=== PATIENT | female | born 1985 | race Caucasian/White ===

== ENCOUNTER → 2016-11-08 | Outpatient (CLI) | payer BC ==
--- NOTE | 2016-11-09 09:36 | XR ---
Bilateral knees HISTORY: Pain and swelling 2 views of both knees submitted Bone mineralization, joint spaces and alignment are maintained. There is no evident joint effusion. IMPRESSION: Normal knees.
--- NOTE | 2016-11-09 21:34 | MR ---
EXAMINATION TYPE: MR lumbar spine wo con DATE OF EXAM: 11/08/2016 9:06 PM COMPARISON: 03/01/2014 HISTORY: LUMBAGO, EMILIANO LEG PAIN CONTRAST: 0 mL intravenous MultiHance. TECHNIQUE: Multiplanar, multisequence images of the lumbar spine were acquired. FINDINGS: L5-S1: No significant disc bulge or disc herniation. No spinal canal stenosis. No foraminal stenosi s. Mild disc desiccation is present.. Tiny annular tear within no right posterior lateral region may be present and was present on the comparison. L4-L5: No significant disc bulge or disc herniation. No spinal canal stenosis. No foraminal stenosi s. . L3-L4: No significant disc bulge or disc herniation. No spinal canal stenosis. No foraminal stenosi s. . L2-L3: No significant disc bulge or disc herniation. No spinal canal stenosis. No foraminal stenosi s. . L1-L2: No significant disc bulge or disc herniation. No spinal canal stenosis. No foraminal stenosi s. . T12-L1: No significant disc bulge or disc herniation. No spinal canal stenosis. No foraminal stenos is. . No signal abnormalities within the distal spinal cord within the [id number]. Cord terminates at T1 2-L1. IMPRESSION: 1. Examination stable from February 23, 2014. 2. Minimal mild disc desiccation L5-S1. Small stable annular tear may be in the right posterior later al region.
--- NOTE | 2016-11-11 08:02 | MR ---
EXAMINATION TYPE: MR brain wo/w con DATE OF EXAM: 11/08/2016 9:07 PM COMPARISON: 02/15/2015 HISTORY: MS, Weakness, Numbness TECHNIQUE: Multiplanar, multisequence images of the brain and brainstem is performed without and with utilizing 13 mL intravenous MultiHance gadolinium contrast. Demyelinating disease protocol with additional Sag ittal Flair sequence performed. FINDINGS: T2 Lesions Present : Yes Approximate Number of Lesions: 6 each side Locations Identified : Subcortical and periventricular Size of Reference Lesion(s): 1. 0.8 x 0.4 x 0.7 cm on axial image series 501 image 23 and sagittal image series 601 image 27. 2 0.6 cm x 0.4 cm x 0.7 cm on axial image 501 image 22 and sagittal image 601 image 12 Enhancing Lesion(s) Present: No T1 Hypointense Lesion(s) Present: Matching white matter changes Change from Prior: Diminished number of lesions Diffusion weighted images demonstrate no evidence of a recent infarct or other diffusion abnormality. There is no worrisome extra-axial fluid collection. The ventricular system and cisternal spaces are normal in size and appearance. The brain volume is age appropriate. Midline structures demonstrate normal morphology. The craniocervical junction appears within normal limits. Post contrast images demonstrate no abnormal enhancement. The visualized globes are intact. There is some mucosal thickening within left ethmoid air cells. IMPRESSION: Diminished number of white matter lesions. The size of the largest lesions appear stable. Some of the se are perpendicular to the ventricles which can be suggestive for, although not diagnostic of, multi ple sclerosis.
== END | disposition home or self-care (01) ==
LOC: RADMRIMAIN 19:33
PROVIDERS: ATTEND Psychiatry & Neurology Neurology
DX: M54.5 Low back pain (principal); M25.561 Pain in right knee; M25.562 Pain in left knee; G93.9 Disorder of brain, unspecified
CPT/HCPCS: 73560; 70553; 72148; A9577

== ENCOUNTER → 2016-12-16 | Outpatient (CLI) | payer BC ==
[2016-12-16 12:38] LABS: Basophils % (A) 1 %; Eosinophils # (A) 0.1 k/uL (0-0.7); Eosinophils % (A) 2 %; HCT 44.3 % (34.0-46.0); HGB 14.4 gm/dL (11.4-16.0); Luc # (Auto) 0.11; Luc % (Auto) 2; Lymphocytes # (A) 2.6 k/uL (1.0-4.8); Lymphocytes % (A) 44 %; MCH 32.6 pg (25.0-35.0); MCHC 32.5 g/dL (31.0-37.0); MCV 100.3 fL (80.0-100.0); Mean Platelet Volume 7.5; Monocytes # (A) 0.2 k/uL (0-1.0); Monocytes % (A) 3 %; Neutrophils # (A) 2.8 k/uL (1.3-7.7); Neutrophils % (A) 49 %; RBC 4.41 m/uL (3.80-5.40); RDW 12.5 % (11.5-15.5); WBC 5.9 k/uL (3.8-10.6); WBC (Perox) 5.77
[2016-12-16 12:53] LABS: ALT 26 U/L (9-52); AST 15 U/L (14-36); Alkaline Phosphatase 50 U/L (38-126); Anion Gap 11 mmol/L; Blood Urea Nitrogen 12 mg/dL (7-17); Calcium 9.5 mg/dL (8.4-10.2); Carbon Dioxide 24 mmol/L (22-30); Chloride 107 mmol/L (98-107); Glucose 84 mg/dL (74-99); Non-African American GFR(MDRD) >60 (>60 ml/min/1.73 sqM); Potassium 4.1 mmol/L (3.5-5.1); Sodium 142 mmol/L (137-145); Total Bilirubin 0.6 mg/dL (0.2-1.3); Total Protein 7.1 g/dL (6.3-8.2)
[2016-12-16 13:42] LABS: Vitamin B12 228 pg/mL (239-931)
== END ==
LOC: LABWHC1 12:10
PROVIDERS: ATTEND Nurse Practitioner Acute Care
DX: E55.9 Vitamin D deficiency, unspecified (principal); G35 Multiple sclerosis
CPT/HCPCS: 36415; 80053; 82306; 82607; 84439; 84443; 84481; 85025

== ENCOUNTER → 2018-10-06 | Outpatient (CLI) | payer BC ==
--- NOTE | 2018-10-06 11:15 | MR ---
EXAMINATION TYPE: MR brain wo/w con DATE OF EXAM: 10/06/2018 COMPARISON: Prior MR brain 11/08/2016 HISTORY: Dizziness, bilateral weakness, MS TECHNIQUE: Multiplanar, multisequence images of the brain and brainstem is performed without and with IV contras t, utilizing 7.5 mL intravenous Gadavist . FINDINGS: Diffusion weighted images demonstrate no evidence of a recent infarct or other diffusion ab normality. There is no extra-axial fluid collection or significant interval change in white matter s ignal abnormality. The ventricular system and cisternal spaces are normal in size and appearance. T he brain volume is age appropriate. Midline structures demonstrate normal morphology. The craniocervical junction appears within normal limits. Post contrast images demonstrate no abnormal enhancement. The dural venous sinuses appear pa tent. The visualized sinuses are remarkable for inflammatory change in the ethmoid air cells, and the globes are intact. IMPRESSION: Stable exam. Findings compatible with patient's history of multiple sclerosis. Mild sinus disease.
== END | disposition home or self-care (01) ==
LOC: RADMRIMAIN 09:26
PROVIDERS: ATTEND Psychiatry & Neurology Neurology
DX: G35 Multiple sclerosis (principal); Z88.1 Allergy status to other antibiotic agents
CPT/HCPCS: 70553; A9585

== ENCOUNTER 2019-01-04 09:09 | Emergency (ER) | payer BC ==
[2019-01-04] MEDS ORDERED: ASPIRIN 81 MG PO STA (09:45)
[2019-01-04] MEDS ORDERED: KETOROLAC 30 MG/ML 1 ML VIAL IVP STA (09:45)
[2019-01-04] MEDS ORDERED: SODIUM CHLORIDE 0.9% 500 ML 500 ML IV STA (09:45)
--- NOTE | 2019-01-04 09:49 | ED ---
Chest Pain HPI - General Chief Complaint: Chest Pain Stated Complaint: chest pain Time Seen by Provider: 01/04/19 09:31 Source: patient, RN notes reviewed Mode of arrival: wheelchair Limitations: no limitations - History of Present Illness Initial Comments: 33-year-old female presents emergency Department chief complaint of left-sided chest pain. 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 Patient states that it hurts to twist and bend her stated deep breath and the side. Patient denies any trauma. Patient states that she was not lifting anything heavy or out of the usual for herself. Patient states that she does have a history of MS but denies any other past medical history including hypertension, hyperlipidemia, diabetes or prior cardiac disease. She is a former smoker she did state that her mother had [place] at 52. Patient denies any pain medications prior arrival. Patient does not take any current home medications. Patient denies cough, chest congestion, fevers or chills. Patient has no nausea vomiting. - Related Data Home Medications Medication Instructions Recorded Confirmed Dextroamphetamine/Amphetamine 20 mg PO BID 03/12/15 01/04/19 [Adderall] Topiramate [Topamax] 50 mg PO HS 06/05/15 01/04/19 ALPRAZolam [Xanax] 0.25 mg PO HS PRN 01/04/19 01/04/19 Escitalopram Oxalate [Lexapro] 20 mg PO HS 01/04/19 01/04/19 rOPINIRole HCL [Requip] 0.25 mg PO HS 01/04/19 01/04/19 Allergies Allergy/AdvReac Type Severity Reaction Status Date / Time azithromycin Allergy Rash/Hives Verified 01/04/19 09:21 [From Zithromax [place]] Review of Systems ROS Statement: Those systems with pertinent positive or pertinent negative responses have been documented in the HPI. ROS Other: All systems not noted in ROS Statement are negative. EKG Findings - EKG Comments: EKG Findings:: EKG performed at 9:30 normal sinus rhythm rate of 70 ID 128 QRS 86 QT/QTC 396/4:30 Past Medical History Past Medical History: Neurologic Disorder Additional Past Medical History / Comment(s): multiple sclerosis History of Any Multi-Drug Resistant Organisms: None Reported Past Surgical History: Tubal Ligation Additional Past Surgical History / Comment(s): mar 2014 to have tubal ligation Past Anesthesia/Blood Transfusion Reactions: No Reported Reaction Past Psychological History: No Psychological Hx Reported Smoking Status: Former smoker Past Alcohol Use History: None Reported Past Drug Use History: None Reported General Exam Limitations: no limitations General appearance: alert, in no apparent distress Head exam: Present: atraumatic, normocephalic, normal inspection Eye exam: Present: normal appearance, PERRL, EOMI. Absent: scleral icterus, conjunctival injection, periorbital swelling ENT exam: Present: normal exam, normal oropharynx, mucous membranes moist Neck exam: Present: normal inspection, full ROM. Absent: tenderness, meningismus, lymphadenopathy Respiratory exam: Present: normal lung sounds bilaterally, chest wall tenderness (Moderate anterior left-sided chest wall tenderness). Absent: respiratory distress, wheezes, rales, rhonchi, stridor Cardiovascular Exam: Present: regular rate, normal rhythm, normal heart sounds. Absent: systolic murmur, diastolic murmur, rubs, gallop, clicks Back exam: Absent: CVA tenderness (R), CVA tenderness (L) Neurological exam: Present: alert, oriented X3, CN II-XII intact Skin exam: Present: warm, dry, intact, normal color. Absent: rash Course Vital Signs 01/04/19 09:21 Temperature 98.5 F Pulse Rate 79 Respiratory 18 Rate Blood Pressure 118/79 Chest Pain MDM - [facility] 33-year-old female presented for chest wall pain. Patient's pain is reproducible at this time. Patient did have EKG, chest x-ray and lab work. Negative troponin, EKG within normal limits. Patient is improved after Toradol. They feel this is not cardiac related this is chest wall pain, chest wall strain. Patient will take [id number] anti-inflammatories and follow-up PCP we discussed return parameters. Disposition Clinical Impression: Chest wall pain, Chest wall muscle strain Disposition: HOME SELF-CARE Condition: Stable Instructions (If sedation given, give patient instructions): Chest Wall Pain (ED) Additional Instructions: Please return to the Emergency Department if symptoms worsen or any other concerns. Is patient prescribed a controlled substance at d/c from ED?: No Referrals: Nguyễn Ochoa MD [Primary Care Provider] - 1-2 days Time of Disposition: 11:38
[2019-01-04 10:19] LABS: Basophils % (A) 1 %; Eosinophils # (A) 0.1 k/uL (0-0.7); Eosinophils % (A) 1 %; HCT 35.2 % (34.0-46.0); HGB 11.9 gm/dL (11.4-16.0); Lymphocytes # (A) 1.8 k/uL (1.0-4.8); Lymphocytes % (A) 31 %; MCH 32.1 pg (25.0-35.0); MCHC 33.8 g/dL (31.0-37.0); Mean Platelet Volume 7.8; Monocytes # (A) 0.2 k/uL (0-1.0); Monocytes % (A) 3 %; Neutrophils # (A) 3.7 k/uL (1.3-7.7); Neutrophils % (A) 63 %; Platelet Count 218 k/uL (150-450); RDW 13.7 % (11.5-15.5); WBC 5.8 k/uL (3.8-10.6)
[2019-01-04 10:33] LABS: ALT 20 U/L (9-52); AST 18 U/L (14-36); African American GFR (CKD) >90 (>60 ml/min/1.73 sqM); Albumin 3.8 g/dL (3.5-5.0); Alkaline Phosphatase 41 U/L (38-126); Anion Gap 7 mmol/L; Blood Urea Nitrogen 12 mg/dL (7-17); Calcium 8.7 mg/dL (8.4-10.2); Carbon Dioxide 25 mmol/L (22-30); Chloride 107 mmol/L (98-107); Glucose 86 mg/dL (74-99); Magnesium 1.9 mg/dL (1.6-2.3); Potassium 3.9 mmol/L (3.5-5.1); Sodium 139 mmol/L (137-145); Total Bilirubin 0.6 mg/dL (0.2-1.3); Total Protein 6.1 g/dL (6.3-8.2)
--- NOTE | 2019-01-04 10:37 | XR ---
EXAMINATION TYPE: XR chest 2V DATE OF EXAM: 01/04/2019 COMPARISON: 08/23/2015 TECHNIQUE: PA and lateral views submitted. HISTORY: Chest pain FINDINGS: The lungs are clear and there is no pneumothorax, pleural effusion, or focal pneumonia. No overt fa ilure. Mild hypertrophic change of the spine. IMPRESSION: 1. No acute process.
[2019-01-04 10:46] LABS: D-Dimer 0.28 mg/L FEU (<0.60); INR 0.9 (<1.2); Partial Thromboplastin Time 24.8 sec (22.0-30.0); Prothrombin Time 9.8 sec (9.0-12.0)
[2019-01-04 11:48] VITALS: BP 111/75; PULSE 66; RESP 16; TEMP 98
== END 2019-01-04 11:48 | disposition home or self-care (01) ==
LOC: EC 09:09
DX: S29.011A Strain of muscle and tendon of front wall of thorax, initial encounter (principal); Z79.899 Other long term (current) drug therapy; Z88.1 Allergy status to other antibiotic agents; Z87.891 Personal history of nicotine dependence; X50.1XXA Overexertion from prolonged static or awkward postures, initial encounter
CPT/HCPCS: 36415; 93005; 85379; 80053; 83735; 84484; 85025; 85610; 85730; 71046; 99285; 96374; J1885

== ENCOUNTER 2019-01-30 20:05 | Emergency (ER) | payer BC ==
[2019-01-30] MEDS ORDERED: diphenhydrAMINE 50 MG/ML 1 ML VIAL IVP STA (21:17)
[2019-01-30] MEDS ORDERED: KETOROLAC 30 MG/ML 1 ML VIAL IVP STA (21:17)
[2019-01-30] MEDS ORDERED: METOCLOPRAMIDE 5 MG/ML 2 ML VIAL IVP STA (21:17)
[2019-01-30] MEDS ORDERED: SODIUM CHLORIDE 0.9% 1,000 ML IV ONE (21:17)
[2019-01-30 21:28] LABS: Basophils % (A) 1 %; Eosinophils # (A) 0.1 k/uL (0-0.7); Eosinophils % (A) 2 %; HCT 43.3 % (34.0-46.0); HGB 14.5 gm/dL (11.4-16.0); Lymphocytes # (A) 1.1 k/uL (1.0-4.8); Lymphocytes % (A) 17 %; MCH 32.2 pg (25.0-35.0); MCHC 33.4 g/dL (31.0-37.0); MCV 96.4 fL (80.0-100.0); Mean Platelet Volume 7.6; Monocytes # (A) 0.3 k/uL (0-1.0); Monocytes % (A) 5 %; Neutrophils # (A) 4.8 k/uL (1.3-7.7); Neutrophils % (A) 75 %; Platelet Count 233 k/uL (150-450); RBC 4.49 m/uL (3.80-5.40); WBC 6.4 k/uL (3.8-10.6)
[2019-01-30 21:34] LABS: HCG,Qualitative Serum Not Detected
[2019-01-30 21:38] LABS: ALT 17 U/L (9-52); AST 23 U/L (14-36); African American GFR (CKD) >90 (>60 ml/min/1.73 sqM); Albumin 4.1 g/dL (3.5-5.0); Alkaline Phosphatase 53 U/L (38-126); Anion Gap 11 mmol/L; Bilirubin,Unconjugated 0.4 mg/dL (0.0-1.1); Blood Urea Nitrogen 14 mg/dL (7-17); Calcium 8.7 mg/dL (8.4-10.2); Carbon Dioxide 22 mmol/L (22-30); Chloride 106 mmol/L (98-107); Glucose 95 mg/dL (74-99); Potassium 3.8 mmol/L (3.5-5.1); Sodium 139 mmol/L (137-145); Total Bilirubin 0.4 mg/dL (0.2-1.3); Total Protein 6.8 g/dL (6.3-8.2)
--- NOTE | 2019-01-30 22:01 | ED ---
General Adult HPI - General Chief complaint: Headache Stated complaint: Headache/vomiting Time Seen by Provider: 01/30/19 20:53 Source: patient Mode of arrival: ambulatory Limitations: no limitations - History of Present Illness Initial comments: 33-year-old female with a history of MS presenting with headache for the last 4 days. States that started in the frontal area of her head, which is wear she normally has headaches. She states she tried Topamax, Aleve, Naproxen, and Motrin without relief. Today she developed nausea with 10 episodes of nonbloody nonbillious emesis. she denies any diarrhea. She is passing gas and her last bowel movement was yesterday. She admits to a subjective fever at home but denies any neck pain. She is having nonradiating cramping superior to her umbilicus. She denies sick contacts or suspicious foods. - Related Data Home Medications Medication Instructions Recorded Confirmed Topiramate [Topamax] 50 mg PO HS 06/05/15 01/30/19 ALPRAZolam [Xanax] 0.25 mg PO HS PRN 01/04/19 01/30/19 Escitalopram Oxalate [Lexapro] 20 mg PO HS 01/04/19 01/30/19 Previous Rx's Medication Instructions Recorded Ondansetron [Zofran ODT] 4 mg PO Q8HR PRN #20 tab 01/30/19 Allergies Allergy/AdvReac Type Severity Reaction Status Date / Time azithromycin Allergy Rash/Hives Verified 01/30/19 20:46 [From Zithromax Z-[place]] Review of Systems ROS Statement: Those systems with pertinent positive or pertinent negative responses have been documented in the HPI. Review of Systems Constitutional: Positive fever, chills Eyes: Denies change in vision, Denies pain Ears, nose, mouth, throat: Denies headaches, Denies sore throat Cardiovascular: Denies chest pain. Denies palpitations Respiratory: Denies shortness of breath, Denies cough Gastrointestinal: Positive abdominal pain.Positive nausea, vomiting. Denies diarrhea. Genitourinary: Denies hematuria, Denies infections Musculoskeletal: Denies pain, Denies swelling Integumentary: Denies rash Neurological: Positive headache, focal weakness, focal numbness Psychiatric: Denies anxiety, Denies depression Hematologic/Lymphatic: Denies easy bleeding or bruising ROS Other: All systems not noted in ROS Statement are negative. Past Medical History Past Medical History: Neurologic Disorder Additional Past Medical History / Comment(s): multiple sclerosis History of Any Multi-Drug Resistant Organisms: None Reported Past Surgical History: Tubal Ligation Additional Past Surgical History / Comment(s): mar 2014 to have tubal ligation Past Anesthesia/Blood Transfusion Reactions: No Reported Reaction Past Psychological History: No Psychological Hx Reported Smoking Status: Former smoker Past Alcohol Use History: None Reported Past Drug Use History: None Reported General Exam - General Exam Comments Initial Comments: General: Awake, alert, No acute Distress HENT: Normocephalic. Atraumatic Eyes: PERRL. EOMI. No scleral icterus. No injected conjunctiva Neck: Full ROM without pain. No nuchal rigidity. Chest/Lungs: Clear to auscultation bilaterally. No wheezing, rhonchi, or rales Cardiac: Regular rate, rhythm. No murmurs or rubs Abdomen/GI: Soft, nontender, nondistended. No rebound, guarding, or rigidity. Musculoskeletal: Full ROM Skin: Warm, dry, intact Neurologic: A/Ox3, no weakness, no sensory deficit, no abnormal gait, no coordi nation deficit Limitations: no limitations Course Vital Signs 01/30/19 01/30/19 01/30/19 20:12 21:42 22:13 Temperature 99.5 F 98.7 F 98.8 F Pulse Rate 69 65 72 Respiratory 16 18 16 Rate Blood Pressure 109/72 111/64 107/65 O2 Sat by Pulse 95 98 98 Oximetry 01/30/19 23:40 Temperature 98.5 F Pulse Rate 65 Respiratory 16 Rate Blood Pressure 106/67 O2 Sat by Pulse 98 Oximetry Medical Decision Making - Medical Decision Making 33-year-old female presenting with headache, generalized body aches, nausea and vomiting. Initial exam the patient is awake, alert, no acute distress. VSS. Patient is well-appearing and nontoxic on examination. I discussed with her concern for meningitis, however at a very low suspicion that this is the cause of her symptoms as her headache is consistent with her normal migraines and she is afebrile in the department. The patient declines further evaluation of that via LP, and I agree with deferring. Her laboratory workup was negative for acute process. Her symptoms resolved while in the department. Given a perception for Zofran and instructed to take Tylenol as she could get rebound headaches from the NSAID she has been taking, and she was also informed the Zofran can cause headaches.No further emergent workup indicated. The patient was given return to ED instructions. They were instructed to follow up with their primary care provider. Stable for discharge at this time. - Lab Data Result diagrams: 01/30/19 20:48 01/30/19 20:48 Lab Results 01/30/19 01/30/19 01/30/19 Range/Units 20:48 20:48 22:05 WBC 6.4 (3.8-10.6) k/uL RBC 4.49 (3.80-5.40) m/uL Hgb 14.5 (11.4-16.0) gm/dL Hct 43.3 (34.0-46.0) % MCV 96.4 (80.0-100.0) fL MCH 32.2 (25.0-35.0) pg MCHC 33.4 (31.0-37.0) g/dL RDW 14.0 (11.5-15.5) % Plt Count 233 (150-450) k/uL Neutrophils % 75 % Lymphocytes % 17 % Monocytes % 5 % Eosinophils % 2 % Basophils % 1 % Neutrophils # 4.8 (1.3-7.7) k/uL Lymphocytes # 1.1 (1.0-4.8) k/uL Monocytes # 0.3 (0-1.0) k/uL Eosinophils # 0.1 (0-0.7) k/uL Basophils # 0.0 (0-0.2) k/uL Sodium 139 (137-145) mmol/L Potassium 3.8 (3.5-5.1) mmol/L Chloride 106 (98-107) mmol/L Carbon Dioxide 22 (22-30) mmol/L Anion Gap 11 mmol/L BUN 14 (7-17) mg/dL Creatinine 0.81 (0.52-1.04) mg/dL Est GFR (CKD-EPI)AfAm >90 (>60 ml/min/1.73 sqM) Est GFR (CKD-EPI)NonAf >90 (>60 ml/min/1.73 sqM) Glucose 95 (74-99) mg/dL Calcium 8.7 (8.4-10.2) mg/dL Total Bilirubin 0.4 (0.2-1.3) mg/dL Conjugated Bilirubin 0.0 (0.0-0.3) mg/dL Unconjugated Bilirubin 0.4 (0.0-1.1) mg/dL Delta Bilirubin 0.0 (0.0-0.2) mg/dL AST 23 (14-36) U/L ALT 17 (9-52) U/L Alkaline Phosphatase 53 (38-126) U/L Total Protein 6.8 (6.3-8.2) g/dL Albumin 4.1 (3.5-5.0) g/dL Lipase 32 (23-300) U/L HCG, Qual Not Detected Urine Color Yellow Urine Appearance Clear (Clear) Urine pH 5.5 (5.0-8.0) Ur Specific [place] 1.029 (1.001-1.035) Urine Protein Trace H (Negative) Urine Glucose (UA) Negative (Negative) Urine Ketones Negative (Negative) Urine Blood Moderate H (Negative) Urine Nitrite Negative (Negative) Urine Bilirubin Negative (Negative) Urine Urobilinogen 2.0 (<2.0) mg/dL Ur Leukocyte Esterase Trace H (Negative) Urine RBC 4 (0-5) /hpf Urine WBC 4 (0-5) /hpf Ur Squamous Epith Cells 8 H (0-4) /hpf Amorphous Sediment Rare H (None) /hpf Urine Bacteria Rare H (None) /hpf Hyaline Casts 1 (0-2) /lpf Urine Mucus Many H (None) /hpf Disposition Clinical Impression: Headache, Nausea, Abdominal pain Disposition: HOME SELF-CARE Instructions (If sedation given, give patient instructions): Acute Headache (ED), Abdominal Pain (ED) Additional Instructions: Return to ED if your abdominal pain worsens, especially in the next 8-12 hours. Zofran can cause headache. Use Tylenol if you develop headache. Prescriptions: Ondansetron [Zofran ODT] 4 mg PO Q8HR PRN #20 tab PRN Reason: Nausea Is patient prescribed a controlled substance at d/c from ED?: No Referrals: Nguyễn Ochoa MD [Primary Care Provider] - 1-2 days
[2019-01-30 22:14] VITALS: RESP 16
[2019-01-30 23:15] LABS: Amorphous Sediment,Urine Rare /hpf; Appearance,Urine Clear (Clear); Bacteria,Urine Rare /hpf; Bilirubin,Urine Negative (Negative); Blood,Urine Moderate (Negative); Color,Urine Yellow; Glucose,Urine (UA) Negative (Negative); Hyaline Casts,Urine 1 /lpf (0-2); Ketones,Urine Negative (Negative); Leukocyte Esterase,Urine Trace (Negative); Mucus,Urine Many /hpf; Nitrite,Urine Negative (Negative); PH, Urine 5.5 (5.0-8.0); Protein,Urine Trace (Negative); RBC,Urine 4 /hpf (0-5); Specific Gravity,Urine 1.029 (1.001-1.035); Squamous Epithelial Cell,Urine 8 /hpf (0-4)
[2019-01-30 23:41] VITALS: BP 106/67; PULSE 65; TEMP 98.5
== END 2019-01-30 23:41 | disposition home or self-care (01) ==
LOC: EC 20:05
DX: R51 Headache (principal); R10.9 Unspecified abdominal pain; R52 Pain, unspecified; R11.2 Nausea with vomiting, unspecified; R50.9 Fever, unspecified; G35 Multiple sclerosis; Z79.899 Other long term (current) drug therapy; Z88.1 Allergy status to other antibiotic agents; Z87.891 Personal history of nicotine dependence; Z53.20 Procedure and treatment not carried out because of patient's decision for unspecified reasons
CPT/HCPCS: 99283; 96374; 96375 ×2; 96361; 36415; 80048; 80076; 83690; 85025; 81001; 84703; J1200; J2765; J1885

== ENCOUNTER 2020-01-09 14:57 | Emergency (ER) | payer BC ==
[2020-01-09 15:02] VITALS: RESP 18
[2020-01-09] MEDS ORDERED: SODIUM CHLORIDE 0.9% 1,000 ML IV STA (15:48)
--- NOTE | 2020-01-09 16:12 | ED ---
General Adult HPI - General Chief complaint: Abdominal Pain Stated complaint: Abdominal Pain Source: patient, RN notes reviewed Mode of arrival: ambulatory Limitations: no limitations - History of Present Illness Initial comments: 34-year-old female presents to the emergency department for a chief complaint of vaginal bleeding. Patient states 2-3 days ago she started to have vaginal bleeding and has been passing clots. Patient states she has a history of tubal ligation. States she gets her period 3 times a month but that it is usually nothing like this. States she has abdominal cramping as well. Patient denies any lightheadedness. Patient has no other complaints at this time including shortness of breath, chest pain, nausea or vomiting, headache, or visual changes. - Related Data Home Medications Medication Instructions Recorded Confirmed Topiramate [Topamax] 50 mg PO HS 06/05/15 01/30/19 ALPRAZolam [Xanax] 0.25 mg PO HS PRN 01/04/19 01/30/19 Escitalopram Oxalate [Lexapro] 20 mg PO HS 01/04/19 01/30/19 Previous Rx's Medication Instructions Recorded Ondansetron [Zofran ODT] 4 mg PO Q8HR PRN #20 tab 01/30/19 Allergies Allergy/AdvReac Type Severity Reaction Status Date / Time azithromycin Allergy Rash/Hives Verified 01/09/20 15:02 [From Zithromax [facility]] Review of Systems ROS Statement: Those systems with pertinent positive or pertinent negative responses have been documented in the HPI. ROS Other: All systems not noted in ROS Statement are negative. Past Medical History Past Medical History: Neurologic Disorder Additional Past Medical History / Comment(s): multiple sclerosis History of Any Multi-Drug Resistant Organisms: None Reported Past Surgical History: Tubal Ligation Additional Past Surgical History / Comment(s): mar 2014 to have tubal ligation Past Anesthesia/Blood Transfusion Reactions: No Reported Reaction Past Psychological History: No Psychological Hx Reported Smoking Status: Former smoker Past Alcohol Use History: None Reported Past Drug Use History: None Reported General Exam Limitations: no limitations General appearance: alert, in no apparent distress Head exam: Present: atraumatic, normocephalic, normal inspection Eye exam: Present: normal appearance, PERRL, EOMI. Absent: scleral icterus, conjunctival injection, periorbital swelling ENT exam: Present: normal exam, mucous membranes moist Neck exam: Present: normal inspection, full ROM. Absent: tenderness, meningismus, lymphadenopathy Respiratory exam: Present: normal lung sounds bilaterally. Absent: respiratory distress, wheezes, rales, rhonchi, stridor Cardiovascular Exam: Present: regular rate, normal rhythm, normal heart sounds. Absent: systolic murmur, diastolic murmur, rubs, gallop, clicks GI/Abdominal exam: Present: soft, normal bowel sounds. Absent: distended, tenderness, guarding, rebound, rigid Neurological exam: Present: alert Psychiatric exam: Present: normal affect, normal mood Course Vital Signs 01/09/20 15:00 Temperature 98.3 F Pulse Rate 73 Respiratory 18 Rate Blood Pressure 117/81 O2 Sat by Pulse 99 Oximetry Medical Decision Making - Medical Decision Making Vitals are stable. Heart rate is normal, patient is not tachycardic. Blood pressure normotensive. CBC is unremarkable. Hemoglobin stable at 13. CMP is unremarkable. Urinalysis is negative. HCG negative. Ultrasound shows a complex endometrial density that could be a blood clot. There is a 2 cm cyst on the left ovary without solid adnexal mass. No evidence of torsion. At this time I recommend that patient follows up with [facility] and take Motrin at home. She will return here for any worsening symptoms. - Lab Data Result diagrams: 01/09/20 16:04 01/09/20 16:04 Lab Results 01/09/20 01/09/20 01/09/20 Range/Units 16:00 16:00 16:04 WBC 7.4 (3.8-10.6) k/uL RBC 4.08 (3.80-5.40) m/uL Hgb 13.2 (11.4-16.0) gm/dL Hct 39.1 (34.0-46.0) % MCV 95.8 (80.0-100.0) fL MCH 32.2 (25.0-35.0) pg MCHC 33.7 (31.0-37.0) g/dL RDW 12.3 (11.5-15.5) % Plt Count 256 (150-450) k/uL Neutrophils % 58 % Lymphocytes % 35 % Monocytes % 4 % Eosinophils % 1 % Basophils % 1 % Neutrophils # 4.3 (1.3-7.7) k/uL Lymphocytes # 2.6 (1.0-4.8) k/uL Monocytes # 0.3 (0-1.0) k/uL Eosinophils # 0.1 (0-0.7) k/uL Basophils # 0.1 (0-0.2) k/uL PT (9.0-12.0) sec INR (<1.2) APTT (22.0-30.0) sec Sodium (137-145) mmol/L Potassium (3.5-5.1) mmol/L Chloride (98-107) mmol/L Carbon Dioxide (22-30) mmol/L Anion Gap mmol/L BUN (7-17) mg/dL Creatinine (0.52-1.04) mg/dL Est GFR (CKD-EPI)AfAm (>60 ml/min/1.73 sqM) Est GFR (CKD-EPI)NonAf (>60 ml/min/1.73 sqM) Glucose (74-99) mg/dL Calcium (8.4-10.2) mg/dL Total Bilirubin (0.2-1.3) mg/dL AST (14-36) U/L ALT (4-34) U/L Alkaline Phosphatase (38-126) U/L Total Protein (6.3-8.2) g/dL Albumin (3.5-5.0) g/dL Amylase (30-110) U/L Lipase (23-300) U/L Urine Color Urine Appearance (Clear) Urine pH (5.0-8.0) Ur Specific Mobile (1.001-1.035) Urine Protein (Negative) Urine Glucose (UA) (Negative) Urine Ketones (Negative) Urine Blood (Negative) Urine Nitrite (Negative) Urine Bilirubin (Negative) Urine Urobilinogen (<2.0) mg/dL Ur Leukocyte Esterase (Negative) Urine RBC (0-5) /hpf Urine WBC (0-5) /hpf Urine Mucus (None) /hpf Urine HCG, Qual Not Detected (Not Detectd) Blood Type O Positive Blood Type Recheck O Pos Bld Type Recheck Status No Antibody Screen NEGATIVE Spec Expiration Date 01/12/2020 - 229901/09/20 01/09/20 01/09/20 Range/Units 16:04 16:04 16:11 WBC (3.8-10.6) k/uL RBC (3.80-5.40) m/uL Hgb (11.4-16.0) gm/dL Hct (34.0-46.0) % MCV (80.0-100.0) fL MCH (25.0-35.0) pg MCHC (31.0-37.0) g/dL RDW (11.5-15.5) % Plt Count (150-450) k/uL Neutrophils % % Lymphocytes % % Monocytes % % Eosinophils % % Basophils % % Neutrophils # (1.3-7.7) k/uL Lymphocytes # (1.0-4.8) k/uL Monocytes # (0-1.0) k/uL Eosinophils # (0-0.7) k/uL Basophils # (0-0.2) k/uL PT 10.1 (9.0-12.0) sec INR 1.0 (<1.2) APTT 24.0 (22.0-30.0) sec Sodium 137 (137-145) mmol/L Potassium 3.9 (3.5-5.1) mmol/L Chloride 105 (98-107) mmol/L Carbon Dioxide 24 (22-30) mmol/L Anion Gap 8 mmol/L BUN 14 (7-17) mg/dL Creatinine 0.85 (0.52-1.04) mg/dL Est GFR (CKD-EPI)AfAm >90 (>60 ml/min/1.73 sqM) Est GFR (CKD-EPI)NonAf 89 (>60 ml/min/1.73 sqM) Glucose 87 (74-99) mg/dL Calcium 9.6 (8.4-10.2) mg/dL Total Bilirubin 0.7 (0.2-1.3) mg/dL AST 19 (14-36) U/L ALT 10 (4-34) U/L Alkaline Phosphatase 54 (38-126) U/L Total Protein 6.5 (6.3-8.2) g/dL Albumin 4.0 (3.5-5.0) g/dL Amylase <30 L (30-110) U/L Lipase 38 (23-300) U/L Urine Color Yellow Urine Appearance Clear (Clear) Urine pH 6.5 (5.0-8.0) Ur Specific Mobile 1.020 (1.001-1.035) Urine Protein Negative (Negative) Urine Glucose (UA) Negative (Negative) Urine Ketones Negative (Negative) Urine Blood Moderate H (Negative) Urine Nitrite Negative (Negative) Urine Bilirubin Negative (Negative) Urine Urobilinogen 2.0 (<2.0) mg/dL Ur Leukocyte Esterase Negative (Negative) Urine RBC 3 (0-5) /hpf Urine WBC <1 (0-5) /hpf Urine Mucus Rare H (None) /hpf Urine HCG, Qual (Not Detectd) Blood Type Blood Type Recheck Bld Type Recheck Status Antibody Screen Spec Expiration Date Disposition Clinical Impression: Dysfunctional uterine bleeding Disposition: HOME SELF-CARE Condition: Good Instructions (If sedation given, give patient instructions): Dysfunctional Uterine Bleeding (ED) Additional Instructions: Please follow up with OB. Please call tomorrow morning for an appointment. Return to the emergency room for any worsening symptoms such as lightheadedness or increased bleeding. Is patient prescribed a controlled substance at d/c from ED?: No Referrals: Nguyễn Ochoa MD [Primary Care Provider] - 1-2 days Time of Disposition: 17:46
[2020-01-09 16:23] LABS: Basophils # (A) 0.1 k/uL (0-0.2); Basophils % (A) 1 %; Eosinophils # (A) 0.1 k/uL (0-0.7); Eosinophils % (A) 1 %; HCT 39.1 % (34.0-46.0); HGB 13.2 gm/dL (11.4-16.0); Lymphocytes # (A) 2.6 k/uL (1.0-4.8); Lymphocytes % (A) 35 %; MCH 32.2 pg (25.0-35.0); MCHC 33.7 g/dL (31.0-37.0); MCV 95.8 fL (80.0-100.0); Mean Platelet Volume 7.8; Monocytes # (A) 0.3 k/uL (0-1.0); Monocytes % (A) 4 %; Neutrophils # (A) 4.3 k/uL (1.3-7.7); Neutrophils % (A) 58 %; Platelet Count 256 k/uL (150-450); RBC 4.08 m/uL (3.80-5.40); RDW 12.3 % (11.5-15.5); WBC 7.4 k/uL (3.8-10.6)
[2020-01-09 16:31] LABS: Prothrombin Time 10.1 sec (9.0-12.0)
[2020-01-09 16:33] LABS: ALT 10 U/L (4-34); AST 19 U/L (14-36); African American GFR (CKD) >90 (>60 ml/min/1.73 sqM); Alkaline Phosphatase 54 U/L (38-126); Amylase <30 U/L (30-110); Anion Gap 8 mmol/L; Blood Urea Nitrogen 14 mg/dL (7-17); Calcium 9.6 mg/dL (8.4-10.2); Carbon Dioxide 24 mmol/L (22-30); Chloride 105 mmol/L (98-107); Glucose 87 mg/dL (74-99); Non-African American GFR(CKD) 89 (>60 ml/min/1.73 sqM); Potassium 3.9 mmol/L (3.5-5.1); Sodium 137 mmol/L (137-145); Total Bilirubin 0.7 mg/dL (0.2-1.3); Total Protein 6.5 g/dL (6.3-8.2)
[2020-01-09 16:39] LABS: Appearance,Urine Clear (Clear); Bilirubin,Urine Negative (Negative); Blood,Urine Moderate (Negative); Color,Urine Yellow; Glucose,Urine (UA) Negative (Negative); Ketones,Urine Negative (Negative); Leukocyte Esterase,Urine Negative (Negative); Mucus,Urine Rare /hpf; Nitrite,Urine Negative (Negative); PH, Urine 6.5 (5.0-8.0); Protein,Urine Negative (Negative); RBC,Urine 3 /hpf (0-5); WBC,Urine <1 /hpf (0-5)
[2020-01-09] MEDS ORDERED: MORPHINE SULFATE 4 MG/ML SYRINGE IVP STA (17:09)
--- NOTE | 2020-01-09 17:18 | US ---
EXAMINATION TYPE: US transvaginal DATE OF EXAM: 01/09/2020 COMPARISON: 2013 CLINICAL HISTORY: pain. Pelvic pain and heavy bleeding x 2 days, irregular cycles, 1, para 1, history of tubal ligation. TECHNIQUE: Transvaginal ER exam. Date of LMP: 1-2 weeks ago EXAM MEASUREMENTS: Uterus: 8.7 x 4.4 x 4.3 cm Endometrial Stripe: 0.8 cm Right Ovary: 3.1 x 1.8 x 2.1 cm Left Ovary: 3.7 x 2.8 x 3.8 cm 1. Uterus: anteverted, mildly heterogeneous 2. Endometrium: 1.2 x 1.3cm complex non vascular area seen possibly within endometrium vs. adjacent to endometrium 3. Right Ovary: wnl 4. Left Ovary: 2.2 x 1.5 x 2.5cm cyst Spectral, color and waveform doppler imaging shows good arterial and venous flow within the ovaries ; there is no evidence for ovarian torsion. 5. Bilateral Adnexa: wnl 6. Posterior cul-de-sac: wnl IMPRESSION: There is complex endometrial density that could be blood clot. There is a 2 cm cyst on th e left ovary. No solid adnexal mass. No evidence of ovarian torsion.
[2020-01-09] MEDS ORDERED: ONDANSETRON 4 MG/2 ML VIAL IVP STA (18:02)
[2020-01-09 18:06] VITALS: BP 131/84; PULSE 67; TEMP 97.9
== END 2020-01-09 18:12 | disposition home or self-care (01) ==
LOC: EC 14:57
DX: N93.8 Other specified abnormal uterine and vaginal bleeding (principal); G35 Multiple sclerosis; Z87.891 Personal history of nicotine dependence; Z88.1 Allergy status to other antibiotic agents; Z98.51 Tubal ligation status
CPT/HCPCS: 36415; 86900; 86901; 80053; 82150; 83690; 85025; 85610; 85730; 86850; 81001; 81025; 93975; 76830; 99284; 96374; 96375; 96361 ×2; J2270; J2405

== ENCOUNTER → 2020-02-25 | Outpatient (CLI) | payer BC ==
[2020-02-25 11:19] LABS: Basophils # (A) 0.1 k/uL (0-0.2); Basophils % (A) 1 %; Eosinophils # (A) 0.1 k/uL (0-0.7); Eosinophils % (A) 1 %; HCT 41.5 % (34.0-46.0); HGB 13.4 gm/dL (11.4-16.0); Lymphocytes # (A) 2.1 k/uL (1.0-4.8); Lymphocytes % (A) 36 %; MCH 30.9 pg (25.0-35.0); MCHC 32.3 g/dL (31.0-37.0); MCV 95.8 fL (80.0-100.0); Mean Platelet Volume 7.8; Monocytes # (A) 0.3 k/uL (0-1.0); Monocytes % (A) 5 %; Neutrophils % (A) 54 %; Platelet Count 262 k/uL (150-450); RBC 4.33 m/uL (3.80-5.40); RDW 12.6 % (11.5-15.5); WBC 5.6 k/uL (3.8-10.6)
== END | disposition home or self-care (01) ==
LOC: LABPAT 09:45
PROVIDERS: ATTEND Obstetrics & Gynecology
DX: Z01.818 Encounter for other preprocedural examination (principal); N93.8 Other specified abnormal uterine and vaginal bleeding
CPT/HCPCS: 36415; 85025

== ENCOUNTER 2020-02-29 06:16 | Day surgery (SDC) | payer BC ==
[2020-02-22 12:01] VITALS: BMI 27.4
[~2020-02-29 06:16] MED LIST: DEXAMETHASONE SOD PHOSPHATE 10 MG/ML 1 ML VIAL IV ONE; LACTATED RINGERS 1,000 ML IV SCH; LIDOCAINE 1% (10MG/ML) FOR IV START INTRADERMA PRN; MIDAZOLAM 2 MG/2 ML VIAL IV PRN; ONDANSETRON 4 MG/2 ML VIAL IVP ONE; Pre Op ABX Message 1 EACH MISC MISCELLANE ONE; fentaNYL (PF) 50 MCG/ML 2 ML AMP IV PRN
[2020-02-29] MEDS ORDERED: ONDANSETRON 4 MG/2 ML VIAL ONE (06:41)
[2020-02-29 06:58] VITALS: RESP 16
[2020-02-29] MEDS ORDERED: LIDOCAINE 1% INJ 10MG/ML (20 ML MDV) ONE (07:29)
[2020-02-29] MEDS ORDERED: MIDAZOLAM 2 MG/2 ML VIAL ONE (07:29)
[2020-02-29] MEDS ORDERED: KETOROLAC 30 MG/ML 1 ML VIAL ONE (07:29)
[2020-02-29] MEDS ORDERED: fentaNYL (PF) 50 MCG/ML 2 ML AMP ONE (07:29)
[2020-02-29] MEDS ORDERED: PROPOFOL 10 MG/ML 20 ML VIAL IV ONE (07:29)
[2020-02-29] MEDS ORDERED: LIDOCAINE 1%-EPI 1:100,000 20 ML VIAL SQ ONE ×3 (07:30→07:57)
--- NOTE | 2020-02-29 08:10 | P.OP ---
Date of Procedure: 02/29/20 Preoperative Diagnosis: Dysfunctional uterine bleeding Postoperative Diagnosis: Same Procedure(s) Performed: Diagnostic hysteroscopy and NovaSure endometrial ablation Anesthesia: MAC Surgeon: Marii Kam Estimated Blood Loss (ml): 5 IV fluids (ml): 600 Urine output (ml): 30 Pathology: none sent Condition: stable Disposition: PACU Operative Findings: No gross intracavitary lesions noted on hysteroscopy Description of Procedure: After the patient was met in the preoperative holding area and all questions were answered, she was taken to the operating room where anesthetic was administered without incident. Appropriate timeout procedure was undertaken. She was in positioned, prepped and draped in the dorsal lithotomy position. The bladder was drained for proxy 30 mL of clear urine. Bimanual examination was performed. Speculum was placed in the vagina and the cervix was grasped anteriorly with a single-tooth tenaculum. Paracervical block was placed. Uterus was sounded to 8 cm. The cervix was then sequentially dilated with Hegar dilators to allow for passage of the diagnostic hysteroscope. The hysteroscope was introduced and fluffy endometrium was noted. The hysteroscope was removed and the cervix further dilated to allow for passage of the NovaSure ablation device. The device was inserted with a cavity length of 5.0 cm and a width of 3.2 cm. Cavity assessment was passed and the device was enabled. Treatment cycle was 45 seconds. Following cessation of the treatment cycle device was removed. The hysteroscope was reintroduced and complete desiccation of the endometrium was noted. Hysteroscope was removed. Tenaculum was removed from the cervix and cervix was observed. No active bleeding was noted. Instruments were then removed from the vagina. Patient was awoken from anesthetic without incident and transported recovery area in good condition. All counts reported to me as correct.
[2020-02-29 08:13] VITALS: TEMP 97.5
[2020-02-29] MEDS: HYDROmorphone 0.5 MG/0.5 ML SYRINGE IVP PRN ×4 (08:17→08:40)
[2020-02-29] MEDS ORDERED: LACTATED RINGERS 1,000 ML IV ONE (08:20)
[2020-02-29] MEDS ORDERED: diphenhydrAMINE 50 MG/ML 1 ML VIAL IVP ONE ×2 (09:03→09:19)
[2020-02-29] MEDS ORDERED: diphenhydrAMINE 50 MG/ML 1 ML VIAL ONE (09:16)
[2020-02-29 09:27] VITALS: BP 122/80; PULSE 73
== END 2020-02-29 09:55 | disposition home or self-care (01) ==
LOC: OR 06:16
PROVIDERS: ATTEND Obstetrics & Gynecology
DX: N93.8 Other specified abnormal uterine and vaginal bleeding (principal); F41.9 Anxiety disorder, unspecified; F32.9 Major depressive disorder, single episode, unspecified; G35 Multiple sclerosis; R59.1 Generalized enlarged lymph nodes; Z98.51 Tubal ligation status; Z98.890 Other specified postprocedural states; Z88.1 Allergy status to other antibiotic agents; Z83.3 Family history of diabetes mellitus; Z82.49 Family history of ischemic heart disease and other diseases of the circulatory system; Z87.891 Personal history of nicotine dependence; Z91.048 Other nonmedicinal substance allergy status; Z79.899 Other long term (current) drug therapy
CPT/HCPCS: 81025; 58563; J2250; J1200; J1100; J2405; J2001; J3010; J1885; J2704; J1170

== ENCOUNTER 2021-11-24 02:13 | Emergency (ER) | payer BC ==
[2021-11-24 02:20] VITALS: RESP 20; TEMP 98.2
[2021-11-24] MEDS ORDERED: PROPARACAINE 0.5% OPHTH DROPS 15 ML BTL BOTH EYES STA (02:28)
[2021-11-24] MEDS ORDERED: LACTATED RINGERS 1,000 ML IV SCH (02:30)
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
[2021-11-24 03:41] VITALS: BP 135/75; PULSE 78
== END 2021-11-24 03:41 | disposition home or self-care (01) ==
LOC: EC 02:13
DX: H10.213 Acute toxic conjunctivitis, bilateral (principal); Z87.891 Personal history of nicotine dependence
CPT/HCPCS: 99283

== ENCOUNTER 2022-02-03 22:32 | Emergency (ER) | payer BC ==
[2022-02-03 22:37] VITALS: BP 139/88; PULSE 90; RESP 18; TEMP 97.9
[2022-02-03] MEDS ORDERED: SODIUM CHLORIDE 0.9% 1,000 ML IV STA (23:02)
--- NOTE | 2022-02-03 23:10 | ED ---
General Adult HPI - General Chief complaint: Syncope Stated complaint: Syncope Time Seen by Provider: 02/03/22 22:38 Source: patient, family, RN notes reviewed Mode of arrival: wheelchair Limitations: no limitations - History of Present Illness Initial comments: 36-year-old female presents to the emergency department for evaluation status post syncopal episode this evening. Patient's spouse states she was in bed asleep when she woke up startled and unfocused, then appeared to "pass out." Spouse states they called EMS and patient was checked out, though declined transport to the hospital. Family brought patient via private vehicle, then patient experienced another syncopal episode while walking to the entrance. Patient states she is feeling fine and has no complaints. She is unable to recall any of these episodes. When asked about her today, patient states she did visit a sick relative which was stressful and emotional. States she then [place] [id number] [place] and was out in the heat throughout the afternoon. States she did become dizzy and has to rest in the shade for the remainder of her time outdoors. Patient states she had little to no water to drink today. Does endorse minimal alcohol use. Denies fever, chills, headache, dizziness, blurry vision, chest pain, back pain, shortness of breath, palpitations, abdominal pain, nausea, vomiting, diarrhea, or dysuria. - Related Data Home Medications Medication Instructions Recorded Confirmed Escitalopram Oxalate [Lexapro] 20 mg PO HS 01/04/19 02/29/20 Dextroamphetamine/Amphetamine 20 mg PO BID 02/22/20 02/29/20 [Adderall] Allergies Allergy/AdvReac Type Severity Reaction Status Date / Time azithromycin Allergy Rash/Hives Verified 02/03/22 22:37 [From Zithromax Z-[place]] Review of Systems ROS Statement: Those systems with pertinent positive or pertinent negative responses have been documented in the HPI. ROS Other: All systems not noted in ROS Statement are negative. Past Medical History Past Medical History: Neurologic Disorder Additional Past Medical History / Comment(s): Multiple Sclerosis. History of Any Multi-Drug Resistant Organisms: None Reported Past Surgical History: Tubal Ligation Additional Past Surgical History / Comment(s): mar 2014 to have tubal ligation Past Anesthesia/Blood Transfusion Reactions: No Reported Reaction Past Psychological History: No Psychological Hx Reported Smoking Status: Former smoker Past Alcohol Use History: Occasional Past Drug Use History: None Reported - Past Family History Mother Family Medical History: Cancer Additional Family Medical History / Comment(s): Breast Cancer. General Exam Limitations: no limitations (Well-developed, well-nourished female in no acute distress. Initial temperature 97.9, pulse 90, respirations 18, blood pressure 139/88, pulse ox 100% on room air.) General appearance: alert, in no apparent distress Head exam: Present: atraumatic, normocephalic, normal inspection Eye exam: Present: normal appearance, PERRL, EOMI. Absent: scleral icterus, conjunctival injection, periorbital swelling Pupils: Present: normal accommodation ENT exam: Present: normal exam, normal oropharynx, mucous membranes moist, TM's normal bilaterally Neck exam: Present: normal inspection, full ROM. Absent: tenderness, lymphad enopathy Respiratory exam: Present: normal lung sounds bilaterally. Absent: respiratory distress, wheezes, rales, rhonchi, stridor, chest wall tenderness Cardiovascular Exam: Present: regular rate, normal rhythm, normal heart sounds. Absent: systolic murmur, diastolic murmur, rubs, gallop, clicks GI/Abdominal exam: Present: soft, normal bowel sounds. Absent: distended, tenderness, guarding, rebound, rigid Back exam: Present: normal inspection. Absent: CVA tenderness (R), CVA tenderness (L), paraspinal tenderness, vertebral tenderness Neurological exam: Present: alert, oriented X3, CN II-XII intact, normal gait Expanded Patient oriented to: Present: person, place, time Speech: Present: fluid speech Cranial nerves: EOM's Intact: Normal, Nystagmus: Normal Motor strength exam: RUE: 5, LUE: 5, RLE: 5, LLE: 5 Eye Response: (4) open spontaneously Motor Response: (6) obeys commands Verbal Response: (5) oriented [place] Total: 15 Psychiatric exam: Present: normal affect, normal mood Skin exam: Present: warm, dry, intact, normal color. Absent: rash Course Vital Signs 02/03/22 22:32 Temperature 97.9 F Pulse Rate 90 Respiratory 18 Rate Blood Pressure 139/88 O2 Sat by Pulse 100 Oximetry - Reevaluation(s) Reevaluation #1: 02/04/22 00:00 Upon reassessment, patient continues to rest comfortably. She verbalizes readiness for discharge after it was explained that an MRI of the brain was not able to be obtained in the emergency department. She had an appointment scheduled with her neurologist for March 09. Encouraged to call to see if she could get in sooner. Patient verbalizes understanding and agrees with this plan. Medical Decision Making - Medical Decision Making This is a 36-year-old female with a past medical history of multiple sclerosis who presents to the urgency department for evaluation status post syncopal episode. Upon exam, patient is well-appearing and in no acute distress. States she is feeling fine with no dizziness or other symptoms. Her physical exam findings are unremarkable. She is neurologically intact with no focal deficit. She was given IV fluids. Laboratory studies were obtained with no significant findings. We did discuss CT of the brain, however patient states she had one done at [facility] 2 weeks ago after a similar episode. States her workup was negative and she was instructed to follow up with her neurologist for recheck. Reports her appointment is scheduled for the first week of March. Attending: Yudy. - Lab Data Result diagrams: 02/03/22 23:23 02/03/22 23:23 Lab Results 02/03/22 02/03/22 02/03/22 Range/Units 23:23 23:23 23:23 WBC 11.3 H (3.8-10.6) k/uL RBC 4.07 (3.80-5.40) m/uL Hgb 13.1 (11.4-16.0) gm/dL Hct 39.8 (34.0-46.0) % MCV 97.9 (80.0-100.0) fL MCH 32.3 (25.0-35.0) pg MCHC 33.0 (31.0-37.0) g/dL RDW 13.0 (11.5-15.5) % Plt Count 235 (150-450) k/uL MPV 7.9 Neutrophils % 59 % Lymphocytes % 34 % Monocytes % 3 % Eosinophils % 2 % Basophils % 1 % Neutrophils # 6.7 (1.3-7.7) k/uL Lymphocytes # 3.8 (1.0-4.8) k/uL Monocytes # 0.4 (0-1.0) k/uL Eosinophils # 0.2 (0-0.7) k/uL Basophils # 0.1 (0-0.2) k/uL PT 9.6 (9.0-12.0) sec INR 0.9 (<1.2) APTT 23.0 (22.0-30.0) sec D-Dimer 0.23 (<0.60) mg/L FEU Sodium (137-145) mmol/L Potassium (3.5-5.1) mmol/L Chloride (98-107) mmol/L Carbon Dioxide (22-30) mmol/L Anion Gap mmol/L BUN (7-17) mg/dL Creatinine (0.52-1.04) mg/dL Est GFR (CKD-EPI)AfAm (>60 ml/min/1.73 sqM) Est GFR (CKD-EPI)NonAf (>60 ml/min/1.73 sqM) Glucose (74-99) mg/dL Calcium (8.4-10.2) mg/dL Magnesium (1.6-2.3) mg/dL Total Bilirubin (0.2-1.3) mg/dL AST (14-36) U/L ALT (4-34) U/L Alkaline Phosphatase (38-126) U/L Troponin I (0.000-0.034) ng/mL Total Protein (6.3-8.2) g/dL Albumin (3.5-5.0) g/dL Urine Color Colorless Urine Appearance Clear (Clear) Urine pH 5.5 (5.0-8.0) Ur Specific [place] 1.005 (1.001-1.035) Urine Protein Negative (Negative) Urine Glucose (UA) Negative (Negative) Urine Ketones Negative (Negative) Urine Blood Negative (Negative) Urine Nitrite Negative (Negative) Urine Bilirubin Negative (Negative) Urine Urobilinogen <2.0 (<2.0) mg/dL Ur Leukocyte Esterase Negative (Negative) 02/03/22 02/03/22 Range/Units 23:23 23:23 WBC (3.8-10.6) k/uL RBC (3.80-5.40) m/uL Hgb (11.4-16.0) gm/dL Hct (34.0-46.0) % MCV (80.0-100.0) fL MCH (25.0-35.0) pg MCHC (31.0-37.0) g/dL RDW (11.5-15.5) % Plt Count (150-450) k/uL MPV Neutrophils % % Lymphocytes % % Monocytes % % Eosinophils % % Basophils % % Neutrophils # (1.3-7.7) k/uL Lymphocytes # (1.0-4.8) k/uL Monocytes # (0-1.0) k/uL Eosinophils # (0-0.7) k/uL Basophils # (0-0.2) k/uL PT (9.0-12.0) sec INR (<1.2) APTT (22.0-30.0) sec D-Dimer (<0.60) mg/L FEU Sodium 140 (137-145) mmol/L Potassium 3.8 (3.5-5.1) mmol/L Chloride 107 (98-107) mmol/L Carbon Dioxide 23 (22-30) mmol/L Anion Gap 10 mmol/L BUN 13 (7-17) mg/dL Creatinine 0.89 (0.52-1.04) mg/dL Est GFR (CKD-EPI)AfAm >90 (>60 ml/min/1.73 sqM) Est GFR (CKD-EPI)NonAf 83 (>60 ml/min/1.73 sqM) Glucose 101 H (74-99) mg/dL Calcium 8.6 (8.4-10.2) mg/dL Magnesium 1.9 (1.6-2.3) mg/dL Total Bilirubin <0.1 L (0.2-1.3) mg/dL AST 22 (14-36) U/L ALT 15 (4-34) U/L Alkaline Phosphatase 70 (38-126) U/L Troponin I <0.012 (0.000-0.034) ng/mL Total Protein 5.9 L (6.3-8.2) g/dL Albumin 3.6 (3.5-5.0) g/dL Urine Color Urine Appearance (Clear) Urine pH (5.0-8.0) Ur Specific [place] (1.001-1.035) Urine Protein (Negative) Urine Glucose (UA) (Negative) Urine Ketones (Negative) Urine Blood (Negative) Urine Nitrite (Negative) Urine Bilirubin (Negative) Urine Urobilinogen (<2.0) mg/dL Ur Leukocyte Esterase (Negative) - EKG Data EKG shows normal: sinus rhythm Rate: normal EKG Comments: EKG obtained at 2318 shows sinus rhythm with ventricular rate 82, WI interval 132, QRS duration 88, QT/QTC 373/412. Interpretation normal ECG. - Radiology Data Radiology results: report reviewed, image reviewed Two-view chest x-ray was obtained. Report was reviewed in its entirety. Impression per Dr. Nuñez is normal chest. No change. Disposition Clinical Impression: Syncope Disposition: HOME SELF-CARE Condition: Stable Instructions (If sedation given, give patient instructions): Syncope (ED) Additional Instructions: Increase intake of fluids. May position changes slowly. Avoid alcohol intake. Follow-up with your neurologist as scheduled. Return to the emergency department with any new, worsening, or concerning symptoms. Is patient prescribed a controlled substance at d/c from ED?: No Referrals: Nguyễn Ochoa MD [Primary Care Provider] - 1-2 days
[2022-02-03 23:34] LABS: Basophils # (A) 0.1 k/uL (0-0.2); Basophils % (A) 1 %; Eosinophils # (A) 0.2 k/uL (0-0.7); Eosinophils % (A) 2 %; HCT 39.8 % (34.0-46.0); HGB 13.1 gm/dL (11.4-16.0); Lymphocytes # (A) 3.8 k/uL (1.0-4.8); Lymphocytes % (A) 34 %; MCH 32.3 pg (25.0-35.0); MCV 97.9 fL (80.0-100.0); Mean Platelet Volume 7.9; Monocytes # (A) 0.4 k/uL (0-1.0); Monocytes % (A) 3 %; Neutrophils # (A) 6.7 k/uL (1.3-7.7); Neutrophils % (A) 59 %; Platelet Count 235 k/uL (150-450); RBC 4.07 m/uL (3.80-5.40); WBC 11.3 k/uL (3.8-10.6)
[2022-02-03 23:41] LABS: Appearance,Urine Clear (Clear); Bilirubin,Urine Negative (Negative); Blood,Urine Negative (Negative); Color,Urine Colorless; Glucose,Urine (UA) Negative (Negative); Ketones,Urine Negative (Negative); Leukocyte Esterase,Urine Negative (Negative); Nitrite,Urine Negative (Negative); PH, Urine 5.5 (5.0-8.0); Protein,Urine Negative (Negative); Specific Gravity,Urine 1.005 (1.001-1.035); Urobilinogen,Urine <2.0 mg/dL (<2.0)
[2022-02-03 23:44] LABS: ALT 15 U/L (4-34); AST 22 U/L (14-36); African American GFR (CKD) >90 (>60 ml/min/1.73 sqM); Albumin 3.6 g/dL (3.5-5.0); Alkaline Phosphatase 70 U/L (38-126); Anion Gap 10 mmol/L; Blood Urea Nitrogen 13 mg/dL (7-17); Calcium 8.6 mg/dL (8.4-10.2); Carbon Dioxide 23 mmol/L (22-30); Chloride 107 mmol/L (98-107); Glucose 101 mg/dL (74-99); Magnesium 1.9 mg/dL (1.6-2.3); Non-African American GFR(CKD) 83 (>60 ml/min/1.73 sqM); Potassium 3.8 mmol/L (3.5-5.1); Sodium 140 mmol/L (137-145); Total Bilirubin <0.1 mg/dL (0.2-1.3); Total Protein 5.9 g/dL (6.3-8.2)
[2022-02-03 23:51] LABS: INR 0.9 (<1.2)
[2022-02-03 23:52] LABS: Prothrombin Time 9.6 sec (9.0-12.0)
--- NOTE | 2022-02-03 23:57 | XR ---
EXAMINATION TYPE: XR chest 2V DATE OF EXAM: 02/03/2022 COMPARISON: 01/04/2019 HISTORY: Syncope TECHNIQUE: FINDINGS: Heart and mediastinum are normal. Lungs are clear. Diaphragm is normal. Bony thorax appears normal. IMPRESSION: Normal chest. No change.
== END 2022-02-04 00:32 | disposition home or self-care (01) ==
LOC: EC 22:32
DX: R55 Syncope and collapse (principal); F17.200 Nicotine dependence, unspecified, uncomplicated; Z88.1 Allergy status to other antibiotic agents
CPT/HCPCS: 36415; 71046; 80053; 81003; 83735; 84484; 85025; 85379; 85610; 85730; 93005; 96360; 99285

== ENCOUNTER → 2022-05-18 | Outpatient (CLI) | payer BC ==
--- NOTE | 2022-05-28 09:22 | MR ---
EXAMINATION TYPE: MR brain/cspine wo/w DATE OF EXAM: 05/18/2022 COMPARISON: October 06, 2018 HISTORY: Multiple sclerosis, headaches, BUE weakness. TECHNIQUE: Multiplanar, multisequence images of the brain and brainstem is performed without and with IV contras t, utilizing 10 mL intravenous Gadavist gadolinium contrast is administered intravenously. Demyelina ting disease protocol with additional Sagittal Flair sequence performed. FINDINGS: T2 Lesions Present : Yes Approximate Number of Lesions: For lesions right cerebral hemisphere and approximately 6 lesions left cerebral hemisphere. Locations Identified : Pericallosal, Periventricular, Juxtacortical Size of Reference Lesion(s): 1. Largest lesion in the right cerebral hemisphere and right frontal subcortical region measuring 6.3 mm. 2 largest lesion left cerebral hemisphere left centrum semiovale 3.4 mm. Enhancing Lesion(s) Present: None T1 Hypointense Lesion(s) Present: No Change from Prior: Stable Diffusion weighted images demonstrate no evidence of a recent infarct or other diffusion abnormality. There is no worrisome extra-axial fluid collection. The ventricular system and cisternal spaces ar e normal in size and appearance. The brain volume is age appropriate. Midline structures demonstrate normal morphology. The craniocervical junction appears within normal limits. Post contrast images demonstrate no abnormal enhancement. The dural venous sinuses appear pa tent. Mild chronic ethmoidal sinusitis. IMPRESSION: 1. Overall stable examination with findings consistent with the patient's provided history of multipl e sclerosis. EXAMINATION TYPE: MR brain/cspine wo/w DATE OF EXAM: 05/18/2022 11:12 AM COMPARISON: NONE HISTORY: Multiple sclerosis, headaches, BUE weakness. CONTRAST: The patient was injected with 10 mL intravenous Gadavist gadolinium contrast. Multiplanar MultiSpin echo imaging of the cervical spine was performed. C2-C3: No evidence for degenerative disc disease. No disc bulge/herniation or protrusion. No Canal stenosis. Foramina are patent bilaterally. C3-C4: No evidence for degenerative disc disease. No disc bulge/herniation or protrusion. No Canal stenosis. Foramina are patent bilaterally. C4-C5: No evidence for degenerative disc disease. Minimal posterior disc bulge. No evidence for disc herniation, protrusion or central stenosis. No Canal stenosis. Foramina are patent bilaterally. C5-C6: No evidence for degenerative disc disease. Minimal posterior disc bulge. No evidence for disc herniation, protrusion or central stenosis. No Canal stenosis. Foramina are patent bilaterally. C6-C7:No evidence for degenerative disc disease. Minimal posterior disc bulge. No evidence for disc h erniation, protrusion or central stenosis. No Canal stenosis. Foramina are patent bilaterally. C7-T1: No evidence for degenerative disc disease. No disc bulge/herniation or protrusion. No Canal stenosis. Foramina are patent bilaterally. No cervical spine fracture. There is normal alignment. Cervical spinal cord is of normal signal. C raniovertebral junction relationships are within normal limits. No pathologic enhancement. IMPRESSION: 1. Cervical spinal cord is of normal caliber and signal. 2. Very mild posterior disc bulging at several levels as noted above.
== END | disposition home or self-care (01) ==
LOC: RADMRIMAIN 09:53
PROVIDERS: ATTEND Psychiatry & Neurology Neurology
DX: G35 Multiple sclerosis (principal); M50.221 Other cervical disc displacement at C4-C5 level
CPT/HCPCS: 70553; 72156

== ENCOUNTER → 2022-06-01 | Outpatient (CLI) | payer BC ==
--- NOTE | 2022-06-01 11:05 | MR ---
MRI thoracic spine with and without contrast HISTORY: Multiple sclerosis. COMPARISON: None. TECHNIQUE: Multiecho multiplanar images of the thoracic spine were obtained with and without contrast . FINDINGS: The thoracic vertebral segments are normal in height and alignment and there is no fracture subluxati on. The disc spaces are well-maintained and there is no degenerative disc disease. The thoracic cord is normal in size and signal intensity. There is no pathological enhancement. The neuroforamina appear patent. The paraspinal soft tissues are unremarkable. IMPRESSION: No significant abnormality seen.
== END | disposition home or self-care (01) ==
LOC: RADMRIMAIN 09:45
PROVIDERS: ATTEND Psychiatry & Neurology Neurology
DX: G35 Multiple sclerosis (principal)
CPT/HCPCS: 72157; A9585

== ENCOUNTER 2024-09-14 22:51 | Inpatient (IN) | payer BC ==
--- NOTE | 2024-09-14 23:12 | ED ---
Psych HPI - General Source: patient, family, RN notes reviewed Mode of arrival: ambulatory <Latesha Kapoor - Last Filed: 09/15/24 02:17> - General Source: patient, family, RN notes reviewed, old records reviewed Mode of arrival: ambulatory - History of Present Illness MD Complaint: suicidal ideation, feels depressed -: unknown Associated Psychiatric Symptoms: depression, suicidal ideation History of same: Yes Quality: constant Context: recent alcohol abuse Associated Symptoms: denies other symptoms Treatments Prior to Arrival: placed on mental health hold If Self Harm: admits thoughts of self harm <Braden Jimenes - Last Filed: 09/15/24 05:29> - General Chief Complaint: Psychiatric Symptoms Stated Complaint: Mental health/petition Time Seen by Provider: 09/14/24 23:01 - History of Present Illness Initial Comments: 38-year-old female with no reported medical history presenting to the emergency department with daughter and son with concern for suicidal ideation. Patient has been depressed over the past year due to the passing of a close friend and her depression has worsened over the past 4 months after the passing of her 4-year-old child. She endorses a suicidal plan however does not feel comfortable disclosing what this plan is. She denies homicidal ideation, auditory visual hallucinations. Denies previous suicidal attempts. Denies chronic drug or alcohol use however states that she had a few alcoholic beverages this evening prior to arrival to emergency department. Denies firearm access at home. Denies previous psychiatric hospitalizations. (Latesha Kapoor) 1 female to ER for suicidal ideation brought in under petition by family for psychiatric evaluation does admit to alcohol intoxication today (Braden Jimenes) - Related Data Home Medications Medication Instructions Recorded Confirmed Escitalopram Oxalate [Lexapro] 20 mg PO HS 01/04/19 02/29/20 Dextroamphetamine/Amphetamine 20 mg PO BID 02/22/20 02/29/20 [Adderall] Allergies Allergy/AdvReac Type Severity Reaction Status Date / Time azithromycin Allergy Rash/Hives Verified 09/14/24 22:54 [From Zithromax [place]] Review of Systems ROS Other: All systems not noted in ROS Statement are negative. <Latesha Kapoor - Last Filed: 09/15/24 02:17> ROS Other: All systems not noted in ROS Statement are negative. <Braden Jimenes - Last Filed: 09/15/24 05:29> ROS Statement: Those systems with pertinent positive or pertinent negative responses have been documented in the HPI. Past Medical History Past Medical History: Neurologic Disorder Additional Past Medical History / Comment(s): Multiple Sclerosis. History of Any Multi-Drug Resistant Organisms: None Reported Past Surgical History: Tubal Ligation Additional Past Surgical History / Comment(s): mar 2014 to have tubal ligation Past Anesthesia/Blood Transfusion Reactions: No Reported Reaction Past Psychological History: No Psychological Hx Reported Smoking Status: Former smoker Past Alcohol Use History: Occasional Past Drug Use History: None Reported - Past Family History Mother Family Medical History: Cancer Additional Family Medical History / Comment(s): Breast Cancer. <Latesha Kapoor - Last Filed: 09/15/24 02:17> General Exam Limitations: no limitations General appearance: alert, in no apparent distress Neck exam: Present: normal inspection. Absent: tenderness, meningismus, lymphadenopathy Respiratory exam: Present: normal lung sounds bilaterally. Absent: respiratory distress, wheezes, rales, rhonchi, stridor Cardiovascular Exam: Present: regular rate, normal rhythm, normal heart sounds. Absent: systolic murmur, diastolic murmur, rubs, gallop, clicks GI/Abdominal exam: Present: soft, normal bowel sounds. Absent: distended, tenderness, guarding, rebound, rigid Extremities exam: Present: normal inspection, full ROM, normal capillary refill. Absent: tenderness, pedal edema, joint swelling, calf tenderness Psychiatric exam: Present: depressed, anxious, suicidal ideation. Absent: normal mood <Latesha Kapoor - Last Filed: 09/15/24 02:17> General appearance: alert, in no apparent distress Head exam: Present: atraumatic, normocephalic, normal inspection Eye exam: Present: normal appearance, PERRL, EOMI. Absent: scleral icterus, conjunctival injection, periorbital swelling ENT exam: Present: normal exam, mucous membranes moist Neck exam: Present: normal inspection. Absent: tenderness, meningismus, lymphadenopathy Respiratory exam: Present: normal lung sounds bilaterally. Absent: respiratory distress, wheezes, rales, rhonchi, stridor Cardiovascular Exam: Present: regular rate, normal rhythm, normal heart sounds. Absent: systolic murmur, diastolic murmur, rubs, gallop, clicks GI/Abdominal exam: Present: soft, normal bowel sounds. Absent: distended, tenderness, guarding, rebound, rigid Extremities exam: Present: normal inspection, full ROM, normal capillary refill. Absent: tenderness, pedal edema, joint swelling, calf tenderness Back exam: Present: normal inspection Neurological exam: Present: alert, oriented X3, CN II-XII intact Psychiatric exam: Present: normal affect, normal mood Skin exam: Present: warm, dry, intact, normal color. Absent: rash <Braden Jimenes - Last Filed: 09/15/24 05:29> Course <Braden Jimenes - Last Filed: 09/15/24 05:29> Vital Signs 09/14/24 22:55 Temperature 98.0 F Pulse Rate 105 H Respiratory 26 H Rate Blood Pressure 156/102 O2 Sat by Pulse 96 Oximetry - Reevaluation(s) Reevaluation #1: 09/15/24 05:28 Medical records reviewed (Braden Jimenes) Reevaluation #2: 09/15/24 05:28 Medically cleared for psychiatric evaluation (Braden Jimenes) Reevaluation #3: differential Mental Health Depression, anxiety, bipolar, psychosis, schizophrenia, borderline personality, situational depression, adjustment disorder, behavioral disorder, brain tumor, malingering, substance abuse, encephalopathy, medication reaction, dementia, hypothyroidism, degenerative neurologic disorder, lupus.... This is not meant to be all-inclusive list (Braden Jimenes) Medical Decision Making <Latesha Kapoor - Last Filed: 09/15/24 02:17> <Braden Jimenes - Last Filed: 09/15/24 05:29> - Medical Decision Making Was pt. sent in by a medical professional or institution (, PA, CARD CUTTER HELPER, urgent care, hospital, or care home...) When possible be specific @ -[No] Did you speak to anyone other than the patient for history (EMS, parent, family, police, friend...)? What history was obtained from this source @ -[No] Did you review nursing and triage notes (agree or disagree)? Why? @ -[I reviewed and agree with nursing and triage notes] Were old charts reviewed (outside hosp., previous admission, EMS record, old EKG, old radiological studies, urgent care reports/EKG's, care home records)? Report findings @ -[No old charts were reviewed] Differential Diagnosis (chest pain, altered mental status, abdominal pain women, abdominal pain men, vaginal bleeding, weakness, fever, dyspnea, syncope, headache, dizziness, GI bleed, back pain, seizure, CVA, palpatations, mental health, musculoskeletal)? @ -Differential Mental Health Depression, anxiety, bipolar, psychosis, schizophrenia, borderline personality, situational depression, adjustment disorder, behavioral disorder, brain tumor, malingering, substance abuse, encephalopathy, medication reaction, dementia, hypothyroidism, degenerative neurologic disorder, lupus.... This is not meant to be all-inclusive list EKG interpreted by me (3pts min.). @ -None X-rays interpreted by me (1pt min.). @ -[None done] CT interpreted by me (1pt min.). @ -[None done] U/S interpreted by me (1pt. min.). @ -[None done] What testing was considered but not performed or refused? (CT, X-rays, U/S, labs)? Why? @ -[None] What meds were considered but not given or refused? Why? @ -[None] Did you discuss the management of the patient with other professionals (professionals i.e. , PA, CARD CUTTER HELPER, lab, RT, psych nurse, foster care social worker, tire mechanic, teacher, home school liaison officer, shelter case manager)? Give summary @ -[No] Was smoking cessation discussed for >3mins.? @ -[No] Was critical care preformed (if so, how long)? @ -[No] Were there social determinants of health that impacted care today? How? (Homelessness, low income, unemployed, alcoholism, drug addiction, transportation, low edu. Level, literacy, decrease access to med. care, long-term, rehab)? @ -[No] Was there de-escalation of care discussed even if they declined (Discuss DNR or withdrawal of care, Hospice)? DNR status @ -[No] What co-morbidities impacted this encounter? (DM, HTN, Smoking, COPD, CAD, Cancer, CVA, ARF, Chemo, Hep., AIDS, mental health diagnosis, sleep apnea, morbid obesity)? @ -[None] Was patient admitted / discharged? Hospital course, mention meds given and rou te, prescriptions, significant lab abnormalities, going to OR and other pertinent info. @ -38-year-old female presenting with family for suicidal ideation. Patient is quite tearful on questioning and is endorsing suicidal ideation however is not disclosing plan. Undiagnosed new problem with uncertain prognosis? @ -[No] Drug Therapy requiring intensive monitoring for toxicity (Heparin, Nitro, Ins ulin, Cardizem)? @ -[No] Were any procedures done? @ -[No] Diagnosis/symptom? @ -[default] Acute, or Chronic, or Acute on Chronic? @ -[default] Uncomplicated (without systemic symptoms) or Complicated (systemic symptoms)? @ -[default] Side effects of treatment? @ -[No] Exacerbation, Progression, or Severe Exacerbation? @ -[No] Poses a threat to life or bodily function? How? (Chest pain, [place], [place], pneumonia, PE, COPD, DKA, ARF, appy, cholecystitis, CVA, Diverticulitis, Homicidal, Suicidal, threat to staff... and all critical care pts) @ -[No] (Latesha Kapoor) 38 female to be admitted for psychiatric evaluation and treatment on her mental health evaluation for suicidal ideation (Braden Jimenes) - Lab Data Lab Results 09/14/24 09/14/24 Range/Units 23:45 23:45 Urine Opiates Screen Not Detected (NotDetected) Ur Oxycodone Screen Not Detected (NotDetected) Urine Methadone Screen Not Detected (NotDetected) Ur Barbiturates Screen Not Detected (NotDetected) U Tricyclic Antidepress Not Detected (NotDetected) Ur Phencyclidine Scrn Not Detected (NotDetected) Ur Amphetamines Screen Not Detected (NotDetected) U Methamphetamines Scrn Not Detected (NotDetected) U Benzodiazepines Scrn Not Detected (NotDetected) Urine Cocaine Screen Not Detected (NotDetected) U Marijuana (THC) Screen Not Detected (NotDetected) SARS-CoV-2 (PCR) Not Detected (Not Detectd) Disposition <Latesha Kapoor - Last Filed: 09/15/24 02:17> Is patient prescribed a controlled substance at d/c from ED?: No <Braden Jimenes - Last Filed: 09/15/24 05:29> Clinical Impression: Depression, Adjustment reaction of adult life, Suicidal ideation Disposition: TRANSFER TO PSYCH HOSP/UNIT Condition: Fair
[2024-09-15 01:06] LABS: Amphetamine Screen,Urine Not Detected (NotDetected); Barbiturate Screen,Urine Not Detected (NotDetected); Benzodiazepines Screen,Urine Not Detected (NotDetected); Cocaine Screen,Urine Not Detected (NotDetected); Methadone Screen, Urine Not Detected (NotDetected); Opiate Screen,Urine Not Detected (NotDetected); Oxycodone Screen, Urine Not Detected (NotDetected); Phencyclidine Screen,Urine Not Detected (NotDetected); Tricyclic Antidepressant,Urine Not Detected (NotDetected); Urn Cannabinoid Scrn Not Detected (NotDetected)
[2024-09-15] MEDS ORDERED: ACETAMINOPHEN TAB 325 MG TAB PO PRN (05:00)
[2024-09-15] MEDS ORDERED: LORazepam 2 MG/ML INJ IM PRN (05:00)
[2024-09-15] MEDS ORDERED: IBUPROFEN 600 MG TAB PO PRN (05:00)
[2024-09-15] MEDS ORDERED: MAG HYDROX/AL HYDROX/SIMETH 355 ML BOTTLE PO PRN (05:00)
[2024-09-15] MEDS ORDERED: HALOPERIDOL LACTATE 5 MG/ML 1 ML VIAL IM PRN (05:00)
[2024-09-15] MEDS ORDERED: MAGNESIUM HYDROXIDE 2,400 MG/30 ML CUP PO PRN (05:00)
[2024-09-15] MEDS: LORazepam 1 MG TAB PO STA (05:42)
[2024-09-15 07:16] LABS: Appearance,Urine Clear (Clear); Bilirubin,Urine Negative (Negative); Blood,Urine Negative (Negative); Color,Urine Colorless; Glucose,Urine (UA) Negative (Negative); Ketones,Urine Negative (Negative); Leukocyte Esterase,Urine Negative (Negative); Nitrite,Urine Negative (Negative); PH, Urine 5.5 (5.0-8.0); Protein,Urine Negative (Negative); Specific Gravity,Urine 1.003 (1.001-1.035); Urobilinogen,Urine <2.0 mg/dL (<2.0)
[2024-09-15] MEDS: LORazepam 1 MG TAB PO PRN (10:09)
[2024-09-15] MEDS: haloperidoL 5 MG TAB PO PRN (10:09)
[2024-09-15] MEDS: NICOTINE 14MG/24HR PATCH TRANSDERM SCH (10:10)
[2024-09-15] MEDS: THIAMINE 100 MG TAB PO SCH (10:10)
[2024-09-15] MEDS: FOLIC ACID 1 MG TAB PO SCH (10:10)
[2024-09-15] MEDS: MULTIVITAMINS, THERA 1 EACH TAB PO SCH (10:10)
--- NOTE | 2024-09-15 11:53 | P.HP ---
Psychiatric H&P - . H&P Date: 09/15/24 History & Physical: Allergies Allergy/AdvReac Type Severity Reaction Status Date / Time azithromycin Allergy Rash/Hives Verified 09/14/24 22:54 From Zithromax [place] Vital Signs Temp 98.1 F 09/15/24 06:30 Pulse 108 H 09/15/24 09:13 Resp 16 09/15/24 09:13 BP 126/85 09/15/24 09:13 Pulse Ox 98 09/15/24 06:30 FiO2 Intake & Output 09/14/24 09/15/24 09/15/24 18:59 06:59 18:59 Weight 96.706 kg 96.706 kg Laboratory Last Values Urine Color Colorless 09/14/24 23:45 Urine Appearance Clear (Clear) 09/14/24 23:45 Urine pH 5.5 (5.0-8.0) 09/14/24 23:45 Ur Specific [place] 1.003 (1.001-1.035) 09/14/24 23:45 Urine Protein Negative (Negative) 09/14/24 23:45 Urine Glucose (UA) Negative (Negative) 09/14/24 23:45 Urine Ketones Negative (Negative) 09/14/24 23:45 Urine Blood Negative (Negative) 09/14/24 23:45 Urine Nitrite Negative (Negative) 09/14/24 23:45 Urine Bilirubin Negative (Negative) 09/14/24 23:45 Urine Urobilinogen <2.0 mg/dL (<2.0) 09/14/24 23:45 Ur Leukocyte Esterase Negative (Negative) 09/14/24 23:45 Urine HCG, Qual Not Detected (Not Detectd) 09/14/24 23:45 Urine Opiates Screen Not Detected (NotDetected) 09/14/24 23:45 Ur Oxycodone Screen Not Detected (NotDetected) 09/14/24 23:45 Urine Methadone Screen Not Detected (NotDetected) 09/14/24 23:45 Ur Barbiturates Screen Not Detected (NotDetected) 09/14/24 23:45 U Tricyclic Antidepress Not Detected (NotDetected) 09/14/24 23:45 Ur Phencyclidine Scrn Not Detected (NotDetected) 09/14/24 23:45 Ur Amphetamines Screen Not Detected (NotDetected) 09/14/24 23:45 U Methamphetamines Scrn Not Detected (NotDetected) 09/14/24 23:45 U Benzodiazepines Scrn Not Detected (NotDetected) 09/14/24 23:45 Urine Cocaine Screen Not Detected (NotDetected) 09/14/24 23:45 U Marijuana (THC) Screen Not Detected (NotDetected) 09/14/24 23:45 SARS-CoV-2 (PCR) Not Detected (Not Detectd) 09/14/24 23:45 09/15/24 11:45 IDENTIFYING DATA: Patient is a 38-year-old female, employed and living with boyfriend and children CHIEF COMPLAINT: Suicidal ideations, depression HPI: Patient presented to the hospital with SI. Per EPS, "Patient states "I just had a bad night. I [place]. I got upset and I drank." Patient states she had Suicidal ideation throughout the day. When asked of a plan, patient states she would take pills or cut her wrists, she then stated that she wouldn't cut her wrists because she did not want to be in pain. Patient states she has had these intermittent thoughts before in her lifetime. Patient is with daughter in her room, which she approved discussing these topics with her daughter in the room. Daughter states she brought her mom in, both mom and daughter are crying during the assessment. Patient states she is very sad due to her Aunt dying and her boyfirends child passing away recently. Patient denies A/V hallucinations." Patient seen and evaluated on the unit and was agreeable with speaking to fiction writer in office. She states she has been struggling with the loss of both her aunt from cancer a year ago and her boyfriend's 4-year-old son 2 months ago from cancer. She states she has been with her boyfriend's son since he was born and that her boyfriend has been taking the loss badly however he is now on medications. Patient emphasizes how she does not feel as though she needs to be here, tearful throughout the encounter. Patient is agreeable with treatment for her mental illness and is able to have some insight into the need for treatment. Patient reports sleep difficulties, poor appetite, low energy, anhedonia, denying any issues with concentration. She does report generalized worry, racing thoughts, restlessness. Patient states she is feeling really sad due to the recent losses that ultimately led her to drink a half a pitcher of a mixed drink yesterday after decreasing her alcohol use. Patient denies any suicidal or homicidal ideations intent or plan. At this time patient denies any auditory or visual hallucinations. Patient denies any flight of ideas racing thoughts and increased in goal directed behavior. Patient admits to using alcohol heavily in the past however states she relapsed and drank half a pitcher of a mixed drink yesterday, denying any other alcohol use or cannabis use. PAST PSYCHIATRIC HISTORY: Patient has a history of depression. Patient denies being on any psychiatric medications. She has tried Lexapro previously. Patient denies any previous psychiatric hospitalizations. Patient denies any psychiatric outpatient follow-up. Patient denies any history of suicide attempts in the past. PMH: as per ER note ALLERGIES: as per EMR SUBSTANCE USE HISTORY: As per HPI FAMILY PSYCHIATRIC/SUBSTANCE USE HISTORY: Patient states her sister suffers from some form of mental illness SOCIAL HISTORY: Patient has a boyfriend whom she lives with and 2 kids. She completed high school and is currently working at a dental office. MENTAL STATUS EXAM: General Appearance: Patient appears to be stated age is alert, directable, and attempts to cooperate. Patient appears to have fair hygiene and grooming. Behavior: Patient is seated without any agitated behavior. Patient is tearful throughout encounter Speech: Patient's speech is fluent and nonpressured. Mood/Affect: Patient reports their mood is depressed, affect is congruent and constricted. Suicidality/Homicidality: Patient denies having any homicidal ideation intent or plan. Denies any suicidal ideations intent or plan Perceptions: Patient denies any visual hallucinations and denies any auditory vazquez llucinations Though content/process: There is no evidence of any delusional thought content and thought process is linear and goal-directed. Memory and concentration: AOX3, grossly intact for the purposes of this session. Can spell "WORLD" backwards Judgment and insight: Fair STRENGTHS/WEAKNESSES: strength is that patient is resilient, has family support and his goal oriented. Weakness is that patient has poor judgment and is impulsive INTELLECT: Average IMPRESSIONS: Major depressive disorder, recurrent, moderate Generalized anxiety disorder Alcohol use disorder, in remission PLAN: -Patient is admitted under voluntary status to [facility] for stabilization of psychiatric symptoms and safety. Patient has signed adult voluntary form and medication consent and is placed in patient's chart. -Medications : Start Lexapro 10 mg daily for depression/anxiety, trazodone 50 mg at bedtime for insomnia -Ativan and Haldol PRN for agitation/aggression -Patient was counselled on substance abuse and desired to cut back on use-Will offer patient subtance use rehab -Patient was informed of the risks, benefits and side effects of the medication and patient verbally consented to taking the medications. Patient signed med consent form and was placed in chart. -Internal Medicine consult to perform medical evaluation and physical. -NRT -not needed as patient does not smoke -SW on board for discharge planning. Encourage patient to participate in groups to work on coping skills. Anticipate discharge back home with family on Friday
[2024-09-15] MEDS: ESCITALOPRAM 10 MG TAB PO SCH (13:06)
[2024-09-15] MEDS: traZODone HCL 50 MG TAB PO SCH (19:45)
--- NOTE | 2024-09-16 09:25 | P.MDCNMH ---
History of Present Illness H&P Date: 09/15/24 This is a 38-year-old female who presented to the emergency department with family on a petition for increased depression and patient reported sadness. Patient denies any suicidal ideation or thoughts of harming herself but is reporting that she is having increased depression and was following with her primary care provider in the outpatient setting looking into getting an antidepressant and this was not established. Patient follows with Dr. Ochoa outpatient with a past medical history of multiple sclerosis and follows with neurology, depression. Patient reports she used to smoke and occasionally drinks and had been drinking with friends heavily the night before and family was concerned with her wellbeing. Patient voluntarily admitted to [facility] for further psychiatric evaluation and assistance with antidepressant medications. Urinalysis was negative and urine drug screen was negative and COVID was negative. Recommend a.m. labs for basic metabolic, TSH and CBC for evaluation. REVIEW OF SYSTEMS: CONSTITUTIONAL: No fever, no malaise, no fatigue. HEENT: No recent visual problems or hearing problems. Denied any sore throat. CARDIOVASCULAR: No chest pain, orthopnea, PND, no palpitations, no syncope. PULMONARY: No shortness of breath, no cough, no hemoptysis. GASTROINTESTINAL: No diarrhea, no nausea, no vomiting, no abdominal pain. Reports not eating very much lately NEUROLOGICAL: No headaches, no weakness, no numbness. HEMATOLOGICAL: Denies any bleeding or petechiae. GENITOURINARY: Denies any burning micturition, frequency, or urgency. MUSCULOSKELETAL/RHEUMATOLOGICAL: Denies any joint pain, swelling, or any muscle pain. ENDOCRINE: Denies any polyuria or polydipsia. The rest of the 14-point review of systems is negative. PHYSICAL EXAMINATION: GENERAL: The patient is alert and oriented x3, tearful on exam and somewhat anxious. Well developed, well nourished. HEENT: Pupils are round and equally reacting to light. EOMI. No scleral icterus. No conjunctival pallor. Normocephalic, atraumatic. No pharyngeal erythema. No thyromegaly. CARDIOVASCULAR: S1 and S2 present. No murmurs, rubs, or gallops. PULMONARY: Chest is clear to auscultation, no wheezing or crackles. ABDOMEN: Soft, nontender, nondistended, normoactive bowel sounds. No palpable organomegaly. MUSCULOSKELETAL: No joint swelling or deformity. EXTREMITIES: No cyanosis, clubbing, or pedal edema. NEUROLOGICAL: Gross neurological examination did not reveal any focal deficits. SKIN: No rashes. Assessment: Depression History of MS, follows with neurology outpatient not in exacerbation Former smoker History of depression and anxiety Patient reported social alcohol abuse although has history of alcohol abuse in the past GI prophylaxis Full code Plan: Patient voluntarily admitted to [facility] for further psychiatric evaluation. Patient reports her daughters brought her here as she had been increasingly depressed and sad and has not been eating or taking care of herself the last few days Patient reports she did drink heavily the night before with friends and denies any feelings of withdrawal Ho medications reviewed and resumed as appropriate Recommend basic labs including BMP, CBC, TSH Thank you kindly for this consultation. Please feel free to contact us with any questions or concerns The impression and plan of care has been dictated by Reyna Crenshaw, Nurse Practitioner as directed. Dr. Kerrie MD I have performed a history and examination and MDM of this patient, discussed the same with the dictator, and agree with the dictator's assessment and plan as written ,documented as a scribe. Based on total visit time, I have performed more than 50% of the visit. Past Medical History Past Medical History: Neurologic Disorder Additional Past Medical History / Comment(s): Multiple Sclerosis. History of Any Multi-Drug Resistant Organisms: None Reported Past Surgical History: Tubal Ligation Additional Past Surgical History / Comment(s): mar 2014 to have tubal ligation Past Anesthesia/Blood Transfusion Reactions: No Reported Reaction Smoking Status: Former smoker - Past Family History Mother Family Medical History: Cancer Additional Family Medical History / Comment(s): Breast Cancer. Medications and Allergies Home Medications Medication Instructions Recorded Confirmed Type Escitalopram Oxalate [Lexapro] 20 mg PO HS 01/04/19 02/29/20 History Dextroamphetamine/Amphetamine 20 mg PO BID 02/22/20 02/29/20 History [Adderall] Allergies Allergy/AdvReac Type Severity Reaction Status Date / Time azithromycin Allergy Rash/Hives Verified 09/14/24 22:54 [From Zithromax Z-[place]] Physical Exam Vitals: Vital Signs Temp Pulse Pulse Resp BP BP Pulse Ox 09/15/24 09:13 108 H 16 126/85 09/15/24 06:30 98.1 F 84 16 137/88 98 09/15/24 05:44 98.1 F 85 16 126/77 95 09/14/24 22:55 98.0 F 105 H 26 H 156/102 96 Intake and Output 09/14/24 09/15/24 09/15/24 22:59 06:59 14:59 Other: Weight 99.79 kg 96.706 kg 96.706 kg Cranial Nerve Examination - Cranial Nerves Cranial Nerve I- Olfactory: Intact Cranial Nerve II- Optic: Intact Cranial Nerve III- Oculomotor: Intact Cranial Nerve IV- Trochlear: Intact Cranial Nerve V- Trigeminal: Intact Cranial Nerve - Abducens: Intact Cranial Nerve VII- Facial: Intact Cranial Nerve VIII- Auditory: Intact Cranial Nerve IX- Glossopharyngeal: Intact Cranial Nerve X- Vagus: Intact Cranial Nerve XI- Accessory: Intact Cranial Nerve XII- Hypoglossal: Intact
[2024-09-16 10:15] VITALS: BP 136/83; PULSE 100; RESP 15; TEMP 98.3
--- NOTE | 2024-09-16 13:33 | P.DS ---
Providers Date of admission: 09/15/24 04:52 Expected date of discharge: 09/16/24 Attending physician: Belén Diaz MD Consults: 09/15/24 05:00 Consult Physician Routine Consulting Provider: [facility] Hospitalists Consult Reason/Comments: H & P Do you want consulting provider notified?: Yes Primary care physician: Nguyễn Ochoa - Discharge Diagnosis(es) (1) Major depressive disorder, recurrent, moderate Status: Acute Priority: High (2) Generalized anxiety disorder Status: Acute Priority: Medium (3) Alcohol use disorder in remission Status: Chronic Priority: Low Hospital Course: Admission HPI: Admission note was completed by marketing writer "Patient presented to the hospital with SI. Per EPS, "Patient states "I just had a bad night. I [place]. I got upset and I drank." Patient states she had Suicidal ideation throughout the day. When asked of a plan, patient states she would take pills or cut her wrists, she then stated that she wouldn't cut her wrists because she did not want to be in pain. Patient states she has had these intermittent thoughts before in her lifetime. Patient is with daughter in her room, which she approved discussing these topics with her daughter in the room. Daughter states she brought her mom in, both mom and daughter are crying during the assessment. Patient states she is very sad due to her Aunt dying and her boyfirends child passing away recently. Patient denies A/V hallucinations." Patient seen and evaluated on the unit and was agreeable with speaking to marketing writer in office. She states she has been struggling with the loss of both her aunt from cancer a year ago and her boyfriend's 4-year-old son 2 months ago from cancer. She states she has been with her boyfriend's son since he was born and that her boyfriend has been taking the loss badly however he is now on medications. Patient emphasizes how she does not feel as though she needs to be here, tearful throughout the encounter. Patient is agreeable with treatment for her mental illness and is able to have some insight into the need for treatment. Patient reports sleep difficulties, poor appetite, low energy, anhedonia, denying any issues with concentration. She does report generalized worry, racing thoughts, restlessness. Patient states she is feeling really sad due to the recent losses that ultimately led her to drink a half a pitcher of a mixed drink yesterday after decreasing her alcohol use. Patient denies any suicidal or homicidal ideations intent or plan. At this time patient denies any auditory or visual hallucinations. Patient denies any flight of ideas racing thoughts and increased in goal directed behavior. Patient admits to using alcohol heavily in the past however states she relapsed and drank half a pitcher of a mixed drink yesterday, denying any other alcohol use or cannabis use." Hospital course: Upon admission to the unit patient was directable and agreeable to commence treatment and signed adult voluntary form.. Patient got along well with other patients on the unit and followed unit protocol. Patient was compliant with the medications and denied any side effects throughout hospital course. Patient was started on Lexapro 10 mg daily for depression/anxiety, trazodone 50 mg at bedtime for insomnia. Patient spoke of her stressors and engaged in therapy both group and individual. Patient was also seen by medical team for history and physical exam. Throughout the course of the hospitalization patient gradually improved with regards to mood, anxiety, sleep and returned back to their baseline level of functioning. On the day of discharge patient denied any suicidal or homicidal ideations intent or plan denied any auditory or visual hallucinations. The patient denied any access to guns or weapons. Patient denied any paranoia and did not endorse any delusions. Patient does not have a significant history of substance abuse and was counseled on abstaining from all substances including alcohol and marijuana. Patient was also counseled on the medications and need for regular compliance and was encouraged to follow-up with their outpatient appointment for mental health and also for primary care. Prior to discharge a family meeting will be arranged by social services to answer any questions and ensure safety upon discharge including making sure that guns/weapons are either removed from the home or locked away. Patient to be discharged back home with children and will [facility] with [facility]. Mental status exam: General Appearance: Patient appears to be stated age is alert, pleasant, and cooperative. Patient is in no acute distress and has improved hygiene and grooming Behavior: Patient is calmly seated without any agitated behavior. Speech: Patient's speech is fluent and nonpressured. Mood/Affect: Patient reports their mood is "good", affect is congruent and euthymic. Suicidality/Homicidality: Patient denies having any suicidal or homicidal ideat ion intent or plan. Perceptions: Patient denies any auditory or visual hallucinations. Though content/process: There is no evidence of any delusional thought content and thought process is linear and goal-directed. More future oriented Memory and concentration: AOX3, grossly intact for the purposes of this session. Can spell "WORLD" backwards correctly. Judgment and insight: Good Impression: Major depressive disorder, recurrent, moderate Generalized anxiety disorder Alcohol use disorder, in remission Plan: -Continue with discharge today as patient has improved and stabilized psychiatrically and is not currently an imminent threat to themself and/or others. -Continue medications: Lexapro 10 mg daily, trazodone 50 mg as needed at bedtime -Patient was counseled on the need for medication compliance and appropriate follow-up at mental health and also primary care for medical issues. Patient verbalized understanding and agreed. -Social work to help coordinate patients discharge today arrange for and conduct family meeting to ensure safety upon discharge and answer any questions/concerns. also to ensure safe home environment that guns/weapons are either removed from the home or locked away. Social work also to arrange for patients follow up appointments with [facility] for psychiatric care along with follow up with primary care provider. -Patient counseled on abstaining from recreational drugs and marijuana and alcohol. Was informed/educated on the adverse effects on their physical and mental health. Patient verbally agreed and understood. -Patient was instructed to return to the hospital or seek immediate medical care if their psychiatric or medical symptoms do worsen or reoccur. Allergies Allergy/AdvReac Type Severity Reaction Status Date / Time azithromycin Allergy Rash/Hives Verified 09/14/24 22:54 From Zithromax [facility]-[place] Vital Signs Temp 98.3 F 09/16/24 10:14 Pulse 100 09/16/24 10:14 Resp 15 09/16/24 10:14 BP 136/83 09/16/24 10:14 Pulse Ox 98 09/16/24 10:14 FiO2 Intake & Output 09/15/24 09/16/24 09/16/24 18:59 06:59 18:59 Weight 96.706 kg Patient Condition at Discharge: Stable Plan - Discharge Summary New Discharge Prescriptions: New traZODone HCL [Desyrel] 50 mg PO HS PRN 30 Days #30 tab PRN Reason: Insomnia Escitalopram [Lexapro] 10 mg PO DAILY 30 Days #30 tab Discontinued Escitalopram Oxalate [Lexapro] 20 mg PO HS Dextroamphetamine/Amphetamine [Adderall] 20 mg PO BID Discharge Medication List Escitalopram [Lexapro] 10 mg PO DAILY 30 Days #30 tab 09/16/24 [Rx] traZODone HCL [Desyrel] 50 mg PO HS PRN 30 Days #30 tab 09/16/24 [Rx] Follow up Appointment(s)/Referral(s): [facility] - 09/20/24 9:30 am (09/20 @ 09:30 Lorraine Sree) Nguyễn Ochoa MD [Primary Care Provider] - 1-2 days Patient Instructions/Handouts: Depression (DC), Generalized Anxiety Disorder (GEN) Activity/Diet/Wound Care/Special Instructions: [facility] [place] Discharge Info Avoid the use of street drugs and alcohol. Take all medications as prescribed. When you are in need of refills on your medications, please contact your outpatient medical provider and/or outpatient psychiatrist. Please go to your scheduled outpatient appointments for aftercare treatment. If symptoms return or become worse, call the crisis line at or and/or visit the nearest emergency room for assistance. National Suicide and Crisis Lifeline - call or text 338. Discharge Disposition: HOME SELF-CARE
== END 2024-09-16 12:44 | disposition home or self-care (01) | DRG 885 ==
LOC: EC 22:51 → 3MHU 09-15 04:52
PROVIDERS: ADMIT Psychiatry & Neurology Psychiatry; ATTEND Psychiatry & Neurology Psychiatry
DX: F33.1 Major depressive disorder, recurrent, moderate (principal); R45.851 Suicidal ideations; G35 Multiple sclerosis; F10.129 Alcohol abuse with intoxication, unspecified; F41.1 Generalized anxiety disorder; F43.20 Adjustment disorder, unspecified; G47.00 Insomnia, unspecified; Z63.4 Disappearance and death of family member; Z87.891 Personal history of nicotine dependence; Z11.52 Encounter for screening for COVID-19; Z88.1 Allergy status to other antibiotic agents
CPT/HCPCS: 80306; 81003; 81025; 82075; 87635; 99285